=== PATIENT | female | born 1980 | race Caucasian/White ===

== ENCOUNTER 2020-02-25 17:13 | Emergency (ER) | payer OTHER, SELFPAY ==
[2020-02-25 17:30] VITALS: BP 139/89; PULSE 96; RESP 18; TEMP 36.9; O2SAT 100
--- NOTE | 2020-02-25 18:01 | ED.BACK ---
HPI - Back Pain/Injury General Chief Complaint: Back Pain/Injury Stated Complaint: Back Pain Time Seen by Provider: 02/25/20 17:44 Source: patient and RN notes reviewed Mode of arrival: ambulatory Limitations: no limitations History of Present Illness HPI Narrative: Patient presents today complaining of some acute on chronic low back pain. She has been experiencing chronic low back pain bilaterally for many years and has been seeing her doctor for it. She currently takes gabapentin, Flexeril, tramadol, diclofenac. Over the past 3 weeks, her pain is worsened and now radiates down the bilateral buttocks to the posterior knees. Denies any new injury or trauma. Denies numbness or tingling in the legs or genitals. Denies any loss of bowel or bladder control. She currently rates her pain 5/10 at rest, which increases to 9.5/10 with shooting pains. She has an appointment to see neurosurgery on March 15.States she was told by her employer that she needed to come get checked out due to her increased pain at work. MD elicited complaint: back pain Related Data Home Medications Medication Instructions Recorded Confirmed amlodipine 5 mg PO DAILY 02/25/20 02/25/20 cyclobenzaprine 10 mg PO TID PRN 02/25/20 02/25/20 diclofenac sodium 75 mg PO BID 02/25/20 02/25/20 escitalopram oxalate 20 mg PO DAILY 02/25/20 02/25/20 gabapentin See Rx Instructions .ROUTE .COMPLEX 02/25/20 02/25/20 norgestimate-ethinyl estradiol 1 tablet PO DAILY 02/25/20 02/25/20 [[id number]] tramadol 50 mg PO TID 02/25/20 02/25/20 Allergies Allergy/AdvReac Type Severity Reaction Status Date / Time No Known Allergies Allergy Unknown Verified 03/09/03 13:41 Review of Systems Review of Systems: Narrative: CONSTITUTIONAL: Denies body aches, fever, chills, or sweats. EYES: Denies visual changes, redness, or discharge. ENT: Denies rhinorrhea, congestion, sore throat, or otalgia. CARDIOVASCULAR: Denies chest pain, palpitations, or edema. RESPIRATORY: Denies cough or dyspnea. GASTROINTESTINAL: Denies abdominal pain, nausea, vomiting, or diarrhea. GENITOURINARY: Denies dysuria or hematuria. SKIN: Denies rash, itching, or wounds. MUSCULOSKELETAL: Denies joint pain, or myalgia. +Back pain NEUROLOGIC: Denies headache, numbness, tingling, or weakness. PSYCH: Denies depression or anxiety. [facility] Social History Social History Additional smoking assessment comments: smokes 4-5 cigarettes a day Substance use: never Comments At time of signature, I have reviewed and agree with nursing past medical, surgical, social and family history unless otherwise noted. Please see nursing chart for further information. There is no relevant family history pertinent to the presenting complaint Exam Narrative: Exam Narrative: GENERAL: Well-appearing, well-nourished, and in no acute distress. HEAD: Normocephalic, atraumatic. EYES: EOMI. No redness or drainage. Conjunctivae normal. ENT: Mucous membranes pink and moist. NECK: Normal AROM. CHEST: No respiratory distress. MUSCULOSKELETAL: Lumbar spinal tenderness. Bilateral lumbar paraspinal muscle tenderness. Bilateral SI joint tenderness.Distal sensation intact. Saddle sensation intact. Capillary refill normal. Pedal pulses normal. Foot push and pulls equal and strong. EXTREMITIES: Normal range of motion. No edema. SKIN: Warm, dry, no rash. Capillary refill normal. Normal skin turgor. NEURO: No focal deficits. Alert and oriented x3. Gait steady. PSYCH: Normal affect. No signs of depression or anxiety. Course Vital Signs Vital signs: Vital Signs Temperature 98.5 F 02/25/20 17:30 Pulse Rate 96 02/25/20 17:30 Respiratory Rate 18 02/25/20 17:30 Blood Pressure 139/89 02/25/20 17:30 Pulse Oximetry 100 02/25/20 17:30 Temperature 98.5 F 02/25/20 17:30 Pulse Rate 96 02/25/20 17:30 Respiratory Rate 18 02/25/20 17:30 Blood Pressur
== END 2020-02-25 18:05 | disposition home or self-care (01) ==
PROVIDERS: Emergency Provider Nurse Practitioner; PCP Physician Assistant
DX: M54.5 Low back pain (principal); G89.29 Other chronic pain; M54.31 Sciatica, right side; F17.210 Nicotine dependence, cigarettes, uncomplicated; I10 Essential (primary) hypertension; F41.9 Anxiety disorder, unspecified; F32.9 Major depressive disorder, single episode, unspecified; Z90.5 Acquired absence of kidney
CPT/HCPCS: 99213; G0463

== ENCOUNTER 2020-08-07 13:12 | Outpatient (CLI) | payer OTHER, SELFPAY ==
[2020-08-07 14:08] LABS: SARS-CoV-2 Ag Negative (Negative)
== END 2020-08-07 13:13 | disposition home or self-care (01) ==
LOC: CHSLAB 13:14
PROVIDERS: PCP Physician Assistant; Visit Provider Physician Assistant
DX: Z20.822 Contact with and (suspected) exposure to COVID-19 (principal)
CPT/HCPCS: 87426; C9803

== ENCOUNTER 2020-08-11 11:56 | Emergency (ER) | payer SELFPAY ==
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
[2020-08-11 11:56] VITALS: BP 137/111; PULSE 104; RESP 20; TEMP 36.6; O2SAT 100
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
[2020-08-11 12:53] LABS: Basophils Absolute Auto 0.06 K/mm3 (0.00-0.10); Basophils Percent Auto 0.7 % (0.0-1.0); Eosinophils Absolute Auto 0.09 K/mm3 (0.02-0.50); Eosinophils Percent Auto 1.1 % (1.0-6.0); Hematocrit 37.8 % (35.0-49.0); Hemoglobin 12.8 g/dL (12.0-15.0); Immature Granulocyte Absolute 0.03 K/mm3 (0.00-0.00); Immature Granulocyte Percent A 0.4 % (0.0-0.0); Lymphocytes Absolute Auto 1.98 K/mm3 (1.10-4.50); Lymphocytes Percent Auto 24.2 % (18.0-42.0); Mean Corpuscular HGB Conc 33.9 g/dL (32.0-36.0); Mean Corpuscular Hemoglobin 29.1 pg (27.0-31.0); Mean Corpuscular Volume 85.9 fL (78.0-102.0); Mean Platelet Volume 10.1 fl (9.2-11.8); Monocytes Absolute Auto 0.45 K/mm3 (0.10-0.90); Monocytes Percent Auto 5.5 % (2.0-11.0); Neutrophils Absolute Auto 5.6 K/mm3 (1.7-7.2); Neutrophils Percent Auto 68.1 % (50.0-70.0); Platelet Count Result 229 K/mm3 (150-420); Red Cell Distribution Width 13.1 % (11.6-14.4); White Blood Count 8.2 K/mm3 (4.8-10.8)
[2020-08-11] MEDS: KETOROLAC 30 MG/ML VIAL (*BKC) IV PUSH (13:00)
[2020-08-11 13:07] LABS: Alanine Aminotransferase 34 U/L (14-59); Albumin Level 3.2 g/dL (3.4-5.0); Alkaline Phosphatase 67 U/L (46-116); Anion Gap 10 mmol/L (8-16); Aspartate Amino Transferase 19 U/L (15-37); Bilirubin,Total 0.4 mg/dL (0.00-1.00); Blood Urea Nitrogen 10 mg/dL (7-18); Calcium 8.8 mg/dL (8.5-10.1); Carbon Dioxide 24 mmol/L (21-32); Chloride 104 mmol/L (98-108); Estimated Glomerular Filt Rate 59; Glucose 92 mg/dL (70-99); Osmolality Calculated 285 mOsm/kg (285-295); Potassium 3.7 mmol/L (3.5-5.1); Sodium 138 mmol/L (136-145); Total Protein 7.1 g/dL (6.4-8.2)
[2020-08-11] MEDS: DEXAMETHASONE 4 MG TABLET 12 MG PO (13:41)
[2020-08-11] MEDS: BACLOFEN 10 MG TABLET 20 MG PO (13:41)
[2020-08-11 13:47] LABS: Add Urine Microscopic? YES; Appearance Urine Sl Cloudy (Clear); Bilirubin Urine Negative (Negative); Blood Urine 3+ (Negative); Color Urine Yellow (Yellow); Glucose Urine UA Negative (Negative); Ketones Urine Negative (Negative); Leukocyte Esterase Ur Negative (Negative); Nitrate Urine Negative (Negative); Protein Urine 1+ (Negative); Specific Grav Ur 1.025 (1.010-1.020)
[2020-08-11 13:55] LABS: RBC Urine >75 /hpf (0-2)
[2020-08-11 13:56] LABS: Bacteria Urine 3+ /hpf; Calcium Oxalate Crystals Urine Present /hpf; Squamous Epithelial Cell Urine Few /hpf (Few); WBC Urine 0-3 /hpf (0-3)
[2020-08-11 14:15] VITALS: BP 136/99; PULSE 100; RESP 15; O2SAT 100
== END 2020-08-11 14:19 | disposition home or self-care (01) ==
PROVIDERS: Emergency Provider Emergency Medicine; PCP Physician Assistant
DX: M54.2 Cervicalgia (principal); V89.2XXA Person injured in unspecified motor-vehicle accident, traffic, initial encounter
CPT/HCPCS: 36415; 70450; 71101; 72125; 72131; 73080; 80053; 81001; 85025; 96374; 99283; 99284; A9270; J1885; J8540

== ENCOUNTER 2021-01-31 09:41 | Outpatient (CLI) | payer OTHER, SELFPAY ==
[2021-01-31 13:08] LABS: SARS-CoV-2 RNA PCR Negative (Negative)
== END 2021-01-31 09:42 | disposition home or self-care (01) ==
LOC: CHSLAB 09:44
PROVIDERS: PCP Physician Assistant; Visit Provider Physician Assistant
DX: B34.9 Viral infection, unspecified (principal); Z20.822 Contact with and (suspected) exposure to COVID-19
CPT/HCPCS: C9803; U0003; U0005

== ENCOUNTER 2021-05-08 12:50 | Emergency (ER) | payer OTHER, SELFPAY ==
--- NOTE | ~2021-05-08 | XR_ITS ---
EXAMINATION: XR abdomen/kub 1V EXAM DATE: 05/08/2021 16:52 INDICATION: kidney stone/ low back pain x today with nausea kidney stone, low back pain. Nausea. TECHNIQUE: Frontal projection(s) of the abdomen for interpretation. Correlation is made to lumbar CT same date. FINDINGS: Probable identification of the sizable right mid ureteral stone in the right mid calyceal stone. These findings have been indicated. Nonobstructive bowel gas pattern. There is mild lumbar lev oscoliosis. Gadolinium IMPRESSION: 1. Probable identification right nephrolithiasis and mid ureteral stone. Reviewed, dictated and finalized at location A. AL PATIENT COORDINATOR
--- NOTE | ~2021-05-08 | CT_ITS ---
EXAMINATION: CT lumbar spine wo maría EXAM DATE: 05/08/2021 15:23 INDICATION: low back pain pain @ RT side low back x today w/ nausea. no injury TECHNIQUE: Spiral CT of the lumbar spine was performed without contrast. Axial, coronal and sagittal images lumbar spine were reviewed. The dose-length product (DLP) for this examination was 1436.52 m Gy-cm. The exposure was tailored according to patient size (auto mA exposure control), and iterativ e reconstruction (ASIR) was used as additional dose reduction technique. Comparison is made to prior examination from 08/11/2020. FINDINGS: There is a right mid ureteral stone measuring 5 x 10 mm at the S2 level. consultants reddy mock appreciate baseline KUB for follow-up. There is moderate right-sided perinephric fat stranding, hy droureteronephrosis. Additional 10 mm right mid calyceal stone. Left kidney not identified. Some scat tered sigmoid diverticula noted. There are no acute fractures identified. No spondylolysis. Mild mid lumbar levoscoliosis. There is se kayla disc disease at L3-4, moderate to severe at L4-5. Level by level evaluation: T12-L1: Disc does not extend beyond the endplate margin. Facet arthropathy: None. Neural foraminal stenosis: No stenosis. Central canal stenosis: No stenosis. L1-L2: There is a minimal diffuse disc bulge. Facet arthropathy: Minimal. Neural foraminal stenosis: No stenosis. Central canal stenosis: No stenosis. L2-L3: There is a mild diffuse disc bulge. Facet arthropathy: Mild. Neural foraminal stenosis: No stenosis. Central canal stenosis: No stenosis. L3-L4: There is a moderate diffuse disc bulge. Facet arthropathy: Moderate right, mild to moderate left. Neural foraminal stenosis: Moderate to severe right, mild to moderate left. Central canal stenosis: Mild to moderate. L4-L5: There is large calcified central disc extrusion causing severe central canal stenosis Facet arthropathy: Moderate bilateral. Neural foraminal stenosis: Moderate to severe left, moderate right. Central canal stenosis: Severe. L5-S1: There is a mild diffuse disc bulge. Facet arthropathy: Moderate to severe left, moderate right. Neural foraminal stenosis: Moderate right, mild to moderate left. Central canal stenosis: Mild. IMPRESSION: 1. Right mid ureteral 5 x 10 mm stone, moderate obstructive nephropathy. consultants would apprec iate baseline KUB. 2. Large right nephrolithiasis. 3. L4-5 severe central canal stenosis and moderate to severe left neural foraminal stenosis. 4. L3-4 moderate to severe disc disease and right neural foraminal stenosis. Reviewed, dictated and finalized at location A. TRIC MOTOR FITTER IMPRESSION: 1. Right mid ureteral 5 x 10 mm stone, moderate obstructive nephropathy. co nsultants would appreciate baseline KUB. 2. Large right nephrolithiasis. 3. L4-5 severe central canal stenosis and moderate to severe left neural chantelle inal stenosis. 4. L3-4 moderate to severe disc disease and right neural foraminal stenosis.
[2021-05-08 12:58] VITALS: BP 112/76; PULSE 90; RESP 20; TEMP 37.2; O2SAT 96
--- NOTE | 2021-05-08 13:06 | ED.BACK ---
HPI - Back Pain/Injury General Chief Complaint: Back Pain/Injury Stated Complaint: AMBULANCE Time Seen by Provider: 05/08/21 13:06 Source: patient and EMS History of Present Illness HPI Narrative: 40-year-old female with chronic low back pain, status post nephrectomy, anxiety/ depression was brought in to the ER by for acute on chronic low back pain. No recent trauma. The pain does not radiate to the legs stays localized to the lower back. No bladder or bowel involvement. No paresthesias or motor loss in the lower extremities. MD elicited complaint: back pain Pertinent past history: prior back pain Onset (ago): hour(s) ( Started 6 hours ago) Timing: constant Severity: severe Pain scale (0-10): 10 Radiation: none Exacerbating factors: none Relieving factors: none Associated symptoms: denies other symptoms Work related injury: No Related Data Home Medications Medication Instructions Recorded Confirmed amlodipine 5 mg PO DAILY 02/25/20 05/08/21 cyclobenzaprine 10 mg PO TID PRN 02/25/20 05/08/21 diclofenac sodium 75 mg PO BID 02/25/20 05/08/21 escitalopram oxalate 20 mg PO DAILY 02/25/20 05/08/21 gabapentin See Rx Instructions .ROUTE .COMPLEX 02/25/20 05/08/21 norgestimate-ethinyl estradiol 1 tablet PO DAILY 02/25/20 05/08/21 [[id number]] Allergies Allergy/AdvReac Type Severity Reaction Status Date / Time No Known Allergies Allergy Unknown Verified 05/08/21 13:07 Review of Systems Review of Systems: All systems reviewed & are unremarkable except as noted in HPI and below Constitutional: Constitutional: Reports as per HPI and Reports no additional constitutional complaints Eyes: Eyes: Reports as per HPI and Reports no additional eye complaints ENT: Reports system reviewed and no additional complaints, except as documented Cardiovascular: Cardiovascular: Reports as per HPI and Reports no additional cardiovascular complaints Respiratory: Respiratory: Reports as per HPI and Reports no additional respiratory complaints Gastrointestinal: Gastrointestinal: Reports as per HPI and Reports no additional gastrointestinal complaints Genitourinary: Genitourinary: Reports no additional female genitourinary complaints Musculoskeletal: Musculoskeletal: Reports no additional musculoskeletal complaints Integumentary/Breasts: Skin/Breast: Reports system reviewed and no additional complaints, except as docu Neurologic: Reports system reviewed and no additional complaints, except as documented Psychiatric: Psychiatric: Reports no additional psychiatric complaints Endocrine: Endocrine: Reports no additional endocrine complaints Hematologic/Lymphatic: Hematologic/Lymphatic: Reports no additional hematologic/lymphatic complaints Allergic/Immunologic: Allergic/Immunologic: Reports no additional allergic/immunologic complaints PMFSH Past Medical History Medical History (Updated 05/08/21 @ 19:22 by Alex Amaya MD) Anxiety Chronic back pain Depression Hypertension Surgical History Surgical History History of nephrectomy Family History Family History Mother No problems noted. Father No problems noted. Social History Social History Additional smoking assessment comments: smokes 4-5 cigarettes a day Alcohol use details: does not drink alcohol Substance use: never Exam Narrative: patient is tossing and turning in the bed complaining of low back pain. She she is able to move from onr side to the other side and then bend forwards without any difficulty. She is moaning with pain. Const: General: cooperative, healthy appearing and acute distress Nutritional Appearance: average body habitus and well nourished HENMT: Head: normal to inspection and No palpable skull fracture present Ears: hearing grossly normal
[2021-05-08] MEDS: HYDROmorphone HCL INJ (*CRX) 2 MG/ML VIAL 1 MG IM (13:32)
[2021-05-08] MEDS: ONDANSETRON HCL ODT 4 MG TABLET PO (13:33)
[2021-05-08 14:10] LABS: Add Urine Microscopic? YES; Appearance Urine Cloudy (Clear); Bilirubin Urine Negative (Negative); Blood Urine 3+ (Negative); Color Urine Yellow (Yellow); Glucose Urine UA Negative (Negative); Ketones Urine Negative (Negative); Leukocyte Esterase Ur 3+ (Negative); Nitrate Urine Positive (Negative); Protein Urine 3+ (Negative); Urobilinogen Urine 0.2 mg/dL (0.2-1.0)
[2021-05-08 14:13] LABS: Pregnancy On Board Control Positive; Urine Pregnancy Test Negative
[2021-05-08 14:16] LABS: Bacteria Urine 4+ /hpf; Squamous Epithelial Cell Urine Moderate /hpf (Few); WBC Urine 51-75 /hpf (0-3)
[2021-05-08] MEDS: KETOROLAC 30 MG/ML VIAL (*BKC) IM (14:52)
[2021-05-08 16:11] LABS: Basophils Absolute Auto 0.04 K/mm3 (0.00-0.10); Basophils Percent Auto 0.3 % (0.0-1.0); Eosinophils Absolute Auto 0.01 K/mm3 (0.02-0.50); Eosinophils Percent Auto 0.1 % (1.0-6.0); Hematocrit 35.6 % (35.0-49.0); Hemoglobin 11.7 g/dL (12.0-15.0); Immature Granulocyte Absolute 0.05 K/mm3 (0.00-0.00); Immature Granulocyte Percent A 0.3 % (0.0-0.0); Lymphocytes Absolute Auto 0.38 K/mm3 (1.10-4.50); Lymphocytes Percent Auto 2.6 % (18.0-42.0); Mean Corpuscular HGB Conc 32.9 g/dL (32.0-36.0); Mean Corpuscular Hemoglobin 28.6 pg (27.0-31.0); Mean Platelet Volume 9.5 fl (9.2-11.8); Monocytes Absolute Auto 0.09 K/mm3 (0.10-0.90); Monocytes Percent Auto 0.6 % (2.0-11.0); Neutrophils Absolute Auto 13.9 K/mm3 (1.7-7.2); Neutrophils Percent Auto 96.1 % (50.0-70.0); Platelet Count Result 227 K/mm3 (150-420); Red Blood Count 4.09 M/mm3 (4.20-5.40); Red Cell Distribution Width 13.1 % (11.6-14.4); White Blood Count 14.5 K/mm3 (4.8-10.8)
[2021-05-08 16:29] LABS: Alanine Aminotransferase 24 U/L (14-59); Albumin Level 2.9 g/dL (3.4-5.0); Alkaline Phosphatase 79 U/L (46-116); Anion Gap 12 mmol/L (8-16); Aspartate Amino Transferase 17 U/L (15-37); Bilirubin,Total 0.8 mg/dL (0.00-1.00); Blood Urea Nitrogen 20 mg/dL (7-18); Calcium 8.3 mg/dL (8.5-10.1); Carbon Dioxide 25 mmol/L (21-32); Chloride 103 mmol/L (98-108); Estimated CRCL calculation 52 ml/min; Estimated Glomerular Filt Rate 42; Glucose 136 mg/dL (70-99); Osmolality Calculated 294 mOsm/kg (285-295); Potassium 4.5 mmol/L (3.5-5.1); Sodium 140 mmol/L (136-145); Total Protein 6.8 g/dL (6.4-8.2)
[2021-05-08 16:32] LABS: Lactic Acid Reflex 0.9 mmol/L (0.4-2.0)
[2021-05-08 17:00] VITALS: BP 120/66; PULSE 79; RESP 20; TEMP 37.2; O2SAT 98
[2021-05-08] MEDS: LACTATED RINGERS 1,000 ML 999 ML IV CONT (17:00)
[2021-05-08] MEDS: levoFLOXacin 500 MG/D5W 100 ML 500 MG/100 ML BAG 100 MG IVPB (17:00)
[2021-05-08 17:50] LABS: SARS-CoV-2 RNA PCR Negative (Negative)
[2021-05-08 18:00] VITALS: BP 118/70; PULSE 72; RESP 16; O2SAT 96
[2021-05-08] MEDS: HYDROmorphone HCL INJ (*CRX) 2 MG/ML VIAL 0.5 MG IV PUSH ×2 (18:00→21:14)
[2021-05-08] MEDS: SODIUM CHLORIDE 0.9% IV 1,000 ML 999 ML IV CONT (18:05)
--- NOTE | 2021-05-08 18:59 | PC.NURSE ---
mom at desk screaming, she only has one kidney she needs transferred now. explained we have an accepting MD waiting for a room to get clean
--- NOTE | 2021-05-08 19:23 | PC.NURSE ---
Took Pt report for Chandrika KINGSTON at this time. Pt. resting on stretcher reports feeling cold only. Warm blankets provided.
--- NOTE | 2021-05-08 20:24 | PC.NURSE ---
RN called [facility] to confirm a room for pt. [facility] staff on phone stated pt will be in room [id number] and gave [phone] as a contact number for the floor.
--- NOTE | 2021-05-08 21:09 | PC.NURSE ---
PT report caled to Ange KINGSTON at 2020. [facility] caled and here at this time to transport Pt. Pt reporting pain a 10 out of 10 at this time orders received for Dilaudid.
[2021-05-08 21:17] VITALS: BP 134/78; PULSE 120; RESP 22; TEMP 37; O2SAT 98
--- NOTE | 2021-05-10 15:26 | PC.NURSE ---
call to [facility], spoke with zac, regarding blood culture prelim results. zac states she has received results previously
== END 2021-05-08 21:20 | disposition short-term general hospital (02) ==
PROVIDERS: Emergency Provider Internal Medicine Critical Care Medicine; PCP Physician Assistant
DX: N20.1 Calculus of ureter (principal); N13.30 Unspecified hydronephrosis; N12 Tubulo-interstitial nephritis, not specified as acute or chronic; Z20.822 Contact with and (suspected) exposure to COVID-19
CPT/HCPCS: 36415; 72131; 74018; 80053; 81001; 81025; 83605; 85025; 87040; 87147; 87186; 96361; 96365; 96372; 96375; 96376; 99284; 99285; A9270; C9803; J1170; J1885; J1956; J7030; J7120; U0003; U0005

== ENCOUNTER 2021-09-25 13:09 | Outpatient (CLI) | payer OTHER, SELFPAY ==
[2021-09-25 16:36] LABS: SARS-CoV-2 RNA PCR Negative (Negative)
== END 2021-09-25 13:10 | disposition home or self-care (01) ==
PROVIDERS: PCP Physician Assistant
DX: Z01.818 Encounter for other preprocedural examination (principal); Z20.822 Contact with and (suspected) exposure to COVID-19
CPT/HCPCS: C9803; U0003; U0005

== ENCOUNTER 2021-10-15 10:54 | Outpatient (RCR) | payer OTHER, SELFPAY ==
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
--- NOTE | 2022-03-18 12:40 | PCPTNOTE ---
Ms. Grubbs attended a total of 4 treatment sessions. She has failed to return to the clinic and will be discharged from our care. Refer to last daily note for pt. discharge status.
== END 2021-10-30 23:59 | disposition home or self-care (01) ==
LOC: CHSPT 10:54
DX: S82.041D Displaced comminuted fracture of right patella, subsequent encounter for closed fracture with routine healing (principal); Z09 Encounter for follow-up examination after completed treatment for conditions other than malignant neoplasm
CPT/HCPCS: 97014; 97110; 97161; G0283

== ENCOUNTER 2022-01-22 13:10 | Emergency (ER) | payer OTHER, SELFPAY ==
--- NOTE | ~2022-01-22 | CT_ITS ---
EXAMINATION: CT brain wo con DATE: 01/22/2022 14:23 INDICATION: head injury with LOC,YESTERDAY,GENERAL PAIN,DIZZY,NAUSEA . TECHNIQUE: Computed tomography (CT) of the head was performed without intravenous contrast. The mA wa s adjusted according to patient size. Iterative reconstruction technique was employed. The dose-lengt h product was 605.33 mGy-cm. COMPARISON: 08/11/2020 FINDINGS: No acute intracranial hemorrhage or extra-axial fluid collection. No hydrocephalus, mass, or herniation. No acute ischemic infarct. Unremarkable dural venous sinus attenuation. No acute osseous abnormality. The aerated spaces are clear. IMPRESSION: No acute intracranial process. Reviewed, dictated and finalized at location K.
--- NOTE | ~2022-01-22 | CT_ITS ---
EXAMINATION: CT lumbar spine wo con DATE: 01/22/2022 14:24 INDICATION: Low back pain. Fall. TECHNIQUE: Computed tomography (CT) of the lumbar spine was performed without intravenous contrast. A utomated exposure control and iterative reconstruction technique were employed. The dose-length produ ct was 1217.57 mGy-cm. COMPARISON: CT lumbar spine 05/08/2021 FINDINGS: The left kidney is absent. There is 12 degrees levoscoliosis of lumbar spine. Vertebral bod y heights are normal. There is severely decreased disc height at L3-L4 and L4-L5 with endplate remode ling. The following disc levels are specifically discussed: L1-L2: The disc does not extend beyond the endplate margin. There is mild bilateral facet joint osteo arthritis. There is no neural foraminal stenosis. There is no central canal stenosis. L2-L3: The disc is bulging. There is mild bilateral facet joint osteoarthritis. There is mild left ne ural foraminal stenosis. There is mild central canal stenosis. L3-L4: The disc is bulging. There is severe right and moderate left facet joint osteoarthritis. There is moderate right and mild left neural foraminal stenosis. There is mild central canal stenosis. L4-L5: The disc is bulging. There is moderate right and severe left facet joint osteoarthritis. There is mild right and moderate left neural foraminal stenosis. There is mild central canal stenosis. L5-S1: The disc does not extend beyond the endplate margin. There is moderate right and severe left f acet joint osteoarthritis. There is mild left neural foraminal stenosis. There is no central canal st enosis. IMPRESSION: 1. Severe lumbar spondylosis with interval improvement in central canal stenosis at L4-L5. 2. Lumbar levoscoliosis. Reviewed, dictated and finalized at location A. IMPRESSION: 1. Severe lumbar spondylosis with interval improvement in central canal stenosi s at L4-L5. 2. Lumbar levoscoliosis.
--- NOTE | ~2022-01-22 | CT_ITS ---
EXAMINATION: CT cervical spine wo con DATE: 01/22/2022 14:23 INDICATION: fall,HI YESTERDAY,DIZZY,GENERAL PAIN TECHNIQUE: Computed tomography (CT) of the cervical spine was performed without intravenous contrast. Automated exposure control and iterative reconstruction technique were employed. The dose-length pro duct was 363.31 mGy-cm. COMPARISON: 08/11/2020. FINDINGS: Vertebral Body Alignment: 2 mm anterolisthesis of C3 on C4. 2 mm retrolisthesis of C4 on C5. Both lik gian on a degenerative basis. Craniocervical and atlantoaxial alignment: Moderate degenerative change. Alignment intact. Osseous structures/fracture: No evidence of a lytic or blastic process in the visualized spine. No e vidence of acute fracture. Old left T1 transverse process fracture. Cervical soft tissues: The paraspinal soft tissues planes are maintained. Degenerative changes: Degenerative changes, without severe neural foraminal or central canal narrowin g. IMPRESSION: No acute fracture or traumatic malalignment in the cervical spine. Reviewed, dictated and finalized at location K.
[2022-01-22 13:15] VITALS: BP 154/85; PULSE 90; RESP 18; TEMP 36.3; O2SAT 100
--- NOTE | 2022-01-22 13:32 | ED.FALL ---
HPI - Fall General Chief Complaint: Fall Stated Complaint: FALL, HEADACHE Time Seen by Provider: 01/22/22 13:31 Source: patient Mode of arrival: ambulatory History of Present Illness HPI Narrative: 41-year-old female with a history of hypertension, anxiety/ depression, chronic low back pain, migraine, status post nephrectomy presents to the ER -- had a fall yesterday when she fell backwards and hit the back of her head. she lost consciousness after the fall -- Severe headache which is generalized. No nausea/ vomiting. No photophobia / phonophobia. No focal neuro deficits. -- worsening of her chronic low back pain -- dizziness First noted today on standing up. -- bilateral shoulder pain worse on movement MD complaint: fall Onset (ago): day(s) ( fell yesterday) Fall from: standing ( Fell in her bathtub) Fall witnessed: no Place fall occurred: home Loss of consciousness: yes Prolonged down time: unclear Symptoms prior to fall: none Context: tripped/slipped Location of injury: head Severity: severe Quality: aching Associated symptoms (after fall): headache, neck pain, weakness and lightheaded Related Data Home Medications Medication Instructions Recorded Confirmed amlodipine 5 mg tablet 5 mg PO DAILY 02/25/20 01/22/22 cyclobenzaprine 10 mg tablet 10 mg PO TID PRN Back Pain 02/25/20 01/22/22 diclofenac sodium 75 mg 75 mg PO BID 02/25/20 01/22/22 tablet,delayed release escitalopram oxalate 20 mg tablet 20 mg PO DAILY 02/25/20 01/22/22 gabapentin 600 mg tablet See Rx Instructions .Route .COMPLEX 02/25/20 01/22/22 norgestimate 0.18 mg/0.215 mg/0.25 1 tablet PO DAILY 02/25/20 01/22/22 mg-ethinyl estradiol 25 mcg tablet ([id number]) Allergies Allergy/AdvReac Type Severity Reaction Status Date / Time No Known Allergies Allergy Unknown Verified 01/22/22 13:28 Review of Systems Review of Systems: All systems reviewed & are unremarkable except as noted in HPI and below Constitutional: Constitutional: Reports as per HPI and Reports no additional constitutional complaints Eyes: Eyes: Reports as per HPI and Reports no additional eye complaints ENT: Reports system reviewed and no additional complaints, except as documented and Reports as per HPI Cardiovascular: Cardiovascular: Reports as per HPI and Reports no additional cardiovascular complaints Respiratory: Respiratory: Reports as per HPI and Reports no additional respiratory complaints Gastrointestinal: Gastrointestinal: Reports as per HPI and Reports no additional gastrointestinal complaints Genitourinary: Genitourinary: Reports no additional female genitourinary complaints and Reports as per HPI Musculoskeletal: Musculoskeletal: Reports no additional musculoskeletal complaints, Reports as per HPI and Reports back pain Integumentary/Breasts: Skin/Breast: Reports system reviewed and no additional complaints, except as docu and Reports as per HPI Comments: no bruises/contusions noted. Neurologic: Reports system reviewed and no additional complaints, except as documented and Reports as per HPI Psychiatric: Psychiatric: Reports no additional psychiatric complaints and Reports as per HPI Endocrine: Endocrine: Reports no additional endocrine complaints and Reports as per HPI Hematologic/Lymphatic: Hematologic/Lymphatic: Reports no additional hematologic/lymphatic complaints and Reports as per HPI Allergic/Immunologic: Allergic/Immunologic: Reports no additional allergic/immunologic complaints and Reports as per HPI PMFSH Past Medical History Medical History (Updated 01/22/22 @ 14:50 by Alex Amaya MD) Anxiety Chronic back pain Depression Hypertension Surgical History Surgical History History of nephrectomy Family History Family History Mother No problems noted. Father No problems noted. Social History
--- NOTE | 2022-01-22 13:39 | PC.NURSE ---
PT WAS TALKING WITH SON IN WAITING AREA WITHOUT DISTRESS, WAS ABLE TO PULL HAIR UP INTO PONYTAIL WITHOUT DIFFICULTY, TRANSFER FROM WC TO STRETCHER ON HER OWN. HOWEVER, WHEN RN APPROACHED PT SHE BEGINS TO CRY AND TRASH ABOUT ONCE ON THE STRETCHER.
[2022-01-22 13:55] LABS: Pregnancy On Board Control Positive; Urine Pregnancy Test Negative
[2022-01-22] MEDS: KETOROLAC 30 MG/ML VIAL (*BKC) IM (13:58)
--- NOTE | 2022-01-22 14:04 | PC.NURSE ---
1355 PT AMBULATES TO WITH SLOW STEADY GAIT. PT IS MOANING AND ROLLING AROUND ON STRETCHER UPON RETURN. PT WAS ABLE TO PROVIDE URINE SPECIMEN. WILL CONTINUE TO MONITOR.
[2022-01-22 14:06] LABS: Add Urine Microscopic? YES; Appearance Urine Clear (Clear); Bilirubin Urine Negative (Negative); Blood Urine Negative (Negative); Color Urine Light Yellow (Yellow); Glucose Urine UA Negative (Negative); Ketones Urine Trace (Negative); Leukocyte Esterase Ur Negative (Negative); Nitrate Urine Negative (Negative); Protein Urine 1+ (Negative); Urobilinogen Urine 0.2 mg/dL (0.2-1.0); pH Urine 7.5 (5.0-8.0)
[2022-01-22 14:10] LABS: Bacteria Urine Trace /hpf; RBC Urine None seen /hpf (0-2); Squamous Epithelial Cell Urine Few /hpf (Few); WBC Urine None seen /hpf (0-3)
[2022-01-22 14:17] LABS: Basophils Absolute Auto 0.02 K/mm3 (0.00-0.10); Basophils Percent Auto 0.5 % (0.0-1.0); Eosinophils Absolute Auto 0.04 K/mm3 (0.02-0.50); Hematocrit 32.3 % (35.0-49.0); Hemoglobin 10.5 g/dL (12.0-15.0); Immature Granulocyte Absolute 0.01 K/mm3 (0.00-0.00); Immature Granulocyte Percent A 0.3 % (0.0-0.0); Lymphocytes Absolute Auto 0.23 K/mm3 (1.10-4.50); Lymphocytes Percent Auto 5.8 % (18.0-42.0); Mean Corpuscular HGB Conc 32.5 g/dL (32.0-36.0); Mean Corpuscular Hemoglobin 26.6 pg (27.0-31.0); Mean Corpuscular Volume 81.8 fL (78.0-102.0); Mean Platelet Volume 9.8 fl (9.2-11.8); Monocytes Absolute Auto 0.55 K/mm3 (0.10-0.90); Monocytes Percent Auto 13.9 % (2.0-11.0); Neutrophils Absolute Auto 3.1 K/mm3 (1.7-7.2); Neutrophils Percent Auto 78.5 % (50.0-70.0); Platelet Count Result 191 K/mm3 (150-420); Red Blood Count 3.95 M/mm3 (4.20-5.40); Red Cell Distribution Width 14.6 % (11.6-14.4)
[2022-01-22 14:31] LABS: Alanine Aminotransferase 28 U/L (14-59); Albumin Level 3.3 g/dL (3.4-5.0); Alkaline Phosphatase 81 U/L (46-116); Anion Gap 10 mmol/L (8-16); Aspartate Amino Transferase 24 U/L (15-37); Bilirubin,Total 0.4 mg/dL (0.00-1.00); Blood Urea Nitrogen 11 mg/dL (7-18); Calcium 8.8 mg/dL (8.5-10.1); Carbon Dioxide 24 mmol/L (21-32); Chloride 101 mmol/L (98-108); Estimated CRCL calculation 61 ml/min; Estimated Glomerular Filt Rate 50; Glucose 106 mg/dL (70-99); Osmolality Calculated 279 mOsm/kg (285-295); Potassium 3.3 mmol/L (3.5-5.1); Sodium 135 mmol/L (136-145); Total Protein 7.4 g/dL (6.4-8.2); Troponin I 9.9 ng/L (0.00-60.4)
--- NOTE | 2022-01-22 14:51 | PC.NURSE ---
PT IS RESTING ON STRETCHER WITHOUT DISTRESS AT THIS TIME.
[2022-01-22 15:00] VITALS: BP 142/93; PULSE 90; RESP 14; O2SAT 99
== END 2022-01-22 15:00 | disposition home or self-care (01) ==
PROVIDERS: Emergency Provider Internal Medicine Critical Care Medicine; PCP Physician Assistant
DX: S06.0X9A Concussion with loss of consciousness of unspecified duration, initial encounter (principal); W19.XXXA Unspecified fall, initial encounter; M47.816 Spondylosis without myelopathy or radiculopathy, lumbar region; M54.2 Cervicalgia; R51.9 Headache, unspecified
CPT/HCPCS: 36415; 70450; 72125; 72131; 80053; 81001; 81025; 84484; 85025; 96372; 99284; J1885

== ENCOUNTER 2023-08-04 12:31 | Outpatient (CLI) | payer OTHER, SELFPAY ==
--- NOTE | ~2023-08-04 | XR_ITS ---
EXAMINATION: XR knee RT 3V DATE: 08/04/2023 12:55 INDICATION: Right knee pain and swelling TECHNIQUE: Three views of the right knee were obtained. COMPARISON: None. FINDINGS: There are changes of prior open reduction and internal fixation of the patella. Alignment i s normal. No acute fracture or osteochondral lesion. There is mild tricompartmental osteoarthritis ch aracterized by tiny marginal osteophytes. A small joint effusion is noted. There is infrapatellar sof t tissue swelling of the knee. IMPRESSION: 1. Right knee soft tissue swelling without acute osseous abnormality. Reviewed, dictated and finalized at location B. 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
== END 2023-08-04 12:32 | disposition home or self-care (01) ==
LOC: CHSIMG 12:32
PROVIDERS: PCP Physician Assistant; Visit Provider Physician Assistant
DX: M25.561 Pain in right knee (principal); M79.89 Other specified soft tissue disorders
CPT/HCPCS: 73562

== ENCOUNTER 2023-08-11 14:11 | Outpatient (RCR) | payer OTHER, SELFPAY ==
--- NOTE | 2023-08-11 13:35 | PTOPEVAL1 ---
Assessment and note entered by Damion Polanco Evaluation Information Assessment Status Evaluation Diagnosis right knee pain Onset 07/11/23 Subjective Information Pt. reports that she was in an accident 2 years ago resulting in patellar fx. She reports on she was at work and doing some cleaning. She describes turning on the right knee and heard a pop. She has underwent xray. The xray revealed some swelling. She reports she has not undergone MRI. She describes pain on the inside of the right knee. She reports that the pain is constant and stabbing. She reports she has been using a cane, but did not bring the cane today. She does wear a knee brace, and has utilized a brace since her accident 2 years ago. She reports that pain is worsened with standing, walking and stairs. She states that the pain in the right knee will wake her at night. She states that she is currently off work due to her injury. 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 She reports that her goal is to decrease her knee pain with standing and walking. Reported Pain Level Pain Score 7: Self Report Assessment PT Clinical Summary Pt. is a 42 year old female who enters the clinic post right knee injury. Special testing is difficult due to pain noted in all planes of movement. She currently presents with impaired gait, functional decline, impaired right knee ROM and right l.e. weakness. Continued skilled PT is indicated in order to improve these areas to allow for improved comfort and return to normal IADL's. Plan of Care Interventions Electrical Stimulation,Hot Pack/Cold Pack,Manual Therapy,Neuro Re-education,Patient/Caregiver Educati,Therapeutic Activities,Therapeutic Exercise PT Services Indicated Yes Treatment Frequency and 2x/week x 10 visits Duration These treatments will address the objective and functional deficits as defined above. The patient will be advanced safely and appropriately in order for the patient to progress towards his/her prior level of function. Additional exercises will be introduced and as well as a comprehensive home exercise program upon discharge, if needed, ?to ensure carryover of functional gains achieved in the clinic. This treatment plan has been reviewed and agreement upon by the patient.
--- NOTE | 2023-08-11 13:35 | OPREHPOC ---
Outpatient Therapy Plan of Care This is a Multidisciplinary Plan of Care that may contain components documented by all disciplines (PT, OT, and ST.) PT Problem 1 PT Problem #1 Knowledge Deficit PT Goal 1 Goal Pt. will be independent with a HEP addressing ROM protestant and l.e. strength. Target Visit 2 PT Problem 2 PT Problem #2 Edema PT Goal 1 Goal Pt. will decrease right knee girth measurements at the joint line to 39cm or less Target Visit 5 PT Problem 3 PT Problem #3 Impaired Range of Motion PT Goal 1 Goal Pt. will achieve 0-125 degrees right knee active ROM to allow for completion of functional squatting activities. Target Visit 10 PT Problem 4 PT Problem #4 Impaired Gait PT Goal 1 Goal -Pt. will ambulate over level surface with equal right and left stance time. -Pt. ascend and descend stairs with reciprocal pattern. PT Problem 5 PT Problem #5 Impaired Functional Mobil PT Goal 1 Goal Pt. will demonstrate less than 50% limitation on the LEFS indicating significant functional improvement.
--- NOTE | 2023-08-25 16:22 | PCPTNOTE ---
patient no call no show
--- NOTE | 2023-09-08 10:22 | PCPTNOTE ---
pt no show. left message
== END 2023-08-28 20:00 | disposition home or self-care (01) ==
LOC: CHSPT 14:11
PROVIDERS: Visit Provider Physician Assistant
DX: M25.561 Pain in right knee (principal)
CPT/HCPCS: 97014; 97110; 97140; 97161; 97530; G0283

== ENCOUNTER 2024-07-01 13:19 | Outpatient (CLI) | payer MEDICAID, SELFPAY ==
--- NOTE | ~2024-07-01 | MM_ITS ---
EXAMINATION: MM screening dulce BI w sebas HISTORY: Screening TECHNIQUE: Craniocaudal and mediolateral oblique 3-D tomosynthesis images were obtained and synthetic 2-D images were generated. CAD analysis was submitted and interpreted. COMPARISON: No prior mammogram is available for comparison at this institution. BREAST PARENCHYMAL COMPOSITION: Not dense: There are scattered areas of fibroglandular density. FINDINGS: There is no evidence of suspicious mass, calcification, or architectural distortion to sugg est malignancy in either breast. There has been no suspicious interval change. IMPRESSION: 1. No mammographic evidence of malignancy. 2. Recommend routine screening mammography in one year. BI-RADS Category 1: Negative Reviewed, dictated and finalized at location A. RIOR DECORATOR PAINTING
--- OUTSIDE RECORDS SUMMARY | 2024-07-01 14:04 | XMS_ITS | Clinical Summary ---
Author Organization [facility] Address [address] [place] [address] Care Team Providers Care Bin Tripper Operator Name Role Phone Halle Howell MD Unavailable [phone] Simon Wagoner Primary Care Provider [phone] Allergies No known active allergies Medications Xkj-Ed-Nkakdibs 0.18/0.215/0.25 mg-25 mcg per tabletIndications : Contraception Take 1 tablet by mouth every morning 07/11/19 22 Active cyclobenzaprine (FLEXERIL) 5 mg tablet Take 1 tablet (5 mg total) by mouth 3 (three) times a day as needed for muscle spasms 30 tablet 07/25/19 22 Active Additional Information Patient taking differently:5 mg oral2 times daily PRN, muscle spasms, Informant: Self, Reported on 07/20/2023 escitalopram (LEXAPRO) 20 mg tablet Take 1 tablet (20 mg total) by mouth daily 30 tablet 07/26/19 22 Active Additional Information Patient taking differently:20 mg oralEvery morning, Indications: Anxiety with Depression, Informant: Self, Reported on 07/20/2023 gabapentin (NEURONTIN) 600 mg tablet Take 1 tablet (600 mg total) by mouth 2 (two) times a day for 15 days 30 tablet 07/25/19 22 Active Additional Information Patient taking differently:600 mg oral 2 times daily,Indications: Neuropathic Pain, Informant: Self, Reported on 09/18/2021 lidocaine (LIDODERM) 5 % Place 1 patch on the skin daily for 15 days Remove & discard patch within 12 hours or as directed by . 15 patch 07/26/19 22 Active Additional Information Patient taking differently:1 patch transdermalAs needed, Remove & discard patch within 12 hours or as directed by MD.,Indications: Postherpetic Neuralgia, Informant: Self, Reported on 09/18/2021 amLODIPine (NORVASC) 5 mg tablet Take 1 tablet (5 mg total) by mouth daily 30 tablet 07/26/19 22 Active Additional Information Patient taking differently:5 mg oralEvery morning, Indications: hypertension, Informant: Self, Reported on 09/18/2021 polyethylene glycol (MIRALAX) 17 gram/dose powderIndications :constipation Take 17 g by mouth as needed 07/25/[address] (VOLTAREN) 75 mg EC tabletIndications :Osteoarthritis Take 1 tablet (75 mg total) by mouth every morning 08/10/19 22 Active acetaminophen (TYLENOL) 500 mg tablet Take 2 tablets (1,000 mg total) by mouth as needed for pain 07/25/19 22 Active traMADoL (ULTRAM) 50 mg tabletIndications :Pain Take 1 tablet (50 mg total) by mouth as needed for pain Active ascorbic acid (VITAMIN C) 500 mg tablet,chewableIn dications:Vitamin C Deficiency Take 500 mg by mouth daily after lunch Active potassium 99 mg tabletIndications :hypokalemia prevention Take 1 tablet (99 mg total) by mouth 2 (two) times a week Active calcium carb/vit D3/minerals (CALCIUM-VITAMIN D ORAL)Indications: supp Take 1 tablet by mouth 2 (two) times a week Active garlic tabletIndications :supp Take 1 tablet by mouth every morning Active acetaminophen (TYLENOL) 500 mg tablet Take 2 tablets (1,000 mg total) by mouth every 6 (six) hours as needed for pain 40 tablet 09/29/19 22 Active oxybutynin (DITROPAN) 5 mg tablet Take 1 tablet (5 mg total) by mouth 3 (three) times a day as needed (bladder spasms) for up to 20 doses 20 tablet 09/29/19 22 Active docusate sodium (COLACE) 100 mg capsuleIndication s:constipation Take 1 capsule (100 mg total) by mouth 2 (two) times a day as needed for constipation for up to 7 days 14 capsule 09/29/19 22 Active tamsulosin (FLOMAX) 0.4 mg extended release capsule Take 1 capsule (0.4 mg total) by mouth daily 30 capsule 09/29/19 22 Active Active Problems Problem Noted Date Diagnosed Date Sternal fracture 07/23/2021 Closed fracture of multiple ribs of left side Avulsion fracture of medial malleolus of left ti jh 07/23/2021 Hydronephrosis 07/23/2021 Acute pain due to trauma 07/23/2021 Closed displaced comminuted fracture of right pa tella 07/22/2021 Overview (07/22/2021): Added automatically from request for surgery [id number] Immunizations Name Administration Dates Next Due DTP 09/22/1981,09/16/1979,06/09/1979 ,02/04/1979 MMR 02/11/1990,04/26/1980 OPV 11/10/1985,09/22/1981,09/16/1979 ,06/09/1979,02/04/1979 Td, adsorbed 02/06/1996,11/10/1985 Tdap 07/22/2021,06/21/2019 Surgical History Surgery Date Site/Laterality Comments NEPHRECTOMY 06/02/2003 - 06/01/2004 Left enlarged left kidney: Left kidney Removed PATELLA FRACTURE SURGERY 07/03/2021 - 07/30/2021 Right URETERAL STENT PLACEMENT 05/11/2021 DILATION AND CURETTAGE, DIAGNOSTIC / THERAPEUTIC 05/02/2002 - 06/01/2002 Medical History Medical History Date Comments Hx Other Medical enlarged left k idgayle; Comments: JRB 07/06/2014 - Exposure to genital herpes Genit al herpes simplex Hx Other Medical ; Outc ome: 8lb(s) 7 oz Male Hx Other Medical ; Outc ome: 7lb(s) 12 oz Female Family History Medical History Relation Name Comments Other Maternal Grandmother kidney and bladder problems; Diabetes type II Mother and grandmother Diabetes mellitus type 2; Anesthesia problems Neg Hx Relation Name Status Comments Maternal Grandmother Mother and grandmother Social History Tobacco Use Types Packs/Day Years Used Date Smoking Tobacco: Every Day Cigarettes 0.3 32.1 Started: 1992 Smokeless Tobacco: Never Comments:Smoking History Pac ks/day: 4 Cigarettes Alcohol Use Standard Drinks/Week Comments Yes 0 (1 standard drink = 0.6 oz pur e alcohol) AUDIT-C Answer Date Recorded Q1: How often do you have a drink containing alc ohol? Monthly or less 09/28/2021 Q2: How many drinks containi ng alcohol do you have on a typical day when you are drinking? 1 or 2 09/28/2021 Q3: How often do you have si x or more drinks on one occasion? Never 09/28/2021 Comments No Sex and Gender Information Value Date Recorded Sex Assigned at Not on file Legal Sex Female 11:54 PM [employer] Gender Identity Not on file Sexual Orientation Not on file Obstetrics History Last Filed Vital Signs Vital Sign Reading Time Taken Comments Blood Pressure 122/74 07/20/2023 9:05 AM T[employer]ER SERVICEM[employer] Pulse 89 07/20/2023 9:05 AM T[employer]ER SERVICEM[employer] Temperature 36.8 ??C (98.3 ??F) 07/20/2023 9:05 AM CS T Respiratory Rate 18 07/20/2023 9:05 AM T[employer]ER SERVICEMAN Oxygen Saturation 99% 07/20/2023 9:05 AM TANKER SERVICEMAN Inhaled Oxygen Concentration - - Weight 93 kg (205 lb) 07/20/2023 9:05 AM TANKER SERVICEM[employer] Height 165.1 cm (5' 5 ) 07/20/2023 9:05 AM TANKER SERVICEMAN Body Mass Index 34.11 07/20/2023 9:05 AM TANKER SERVICEMAN Plan of Treatment Health Maintenance Due Date Last Done Comments Breast Cancer Screening-Mammogram 1978 Cervical Cancer Screening 1978 Colon Cancer Screening-Colonoscopy 1978 Depression Screening 1978 Hepatitis C Screening 1978 Pneumococcal vaccine <65 (1 of 2 - PCV) 1984 Hepatitis B Screening 1996 Regular Well Visit/Exam 18-64 1996 Influenza Vaccine (#1) 2024 DTaP/Tdap/Td Vaccine (7 - Td or Tdap) 07/22/2031 07/22/2021, 06/21/2019, 02/06/1996, Additional history exists HPV Vaccines Aged Out No longer eligi ble based on patient's age to complete this topic Medical Devices Implanted Type Area Automation Qa Lead Device Identifier Shelf Expiration Date Model / Serial / Lot Synthes 202.900 2.7mm 5mm 40mm 2.5mm Self Tap Stardrive Cortex T8 Screw Bone - [id number] Implanted:Qty: 1 on 07/23/2021 by Delon Maya MD at [facility] Right: Patella Synthes I 202.900 / / Synthes 201.380.97 2mm 36mm Self Tap Self Retain Stardrive Cortex T6 Screw Bone - [id number] Implanted:Qty: 1 on 07/23/2021 by Delon Maya MD at [facility] Right: Patella Synthes I 201.380.97 / / Synthes 02.211.224lcp 5x12 Hole Variable Angle Lock Mesh Forefoot Midfoot Plate - [id number] Implanted:Qty: 1 on 07/23/2021 by Delon Maya MD at [facility] Right: Patella Synthes I 02.211.224 / / Synthes 202.894 2.7mm 5mm 34mm 2.5mm Self Tap Stardrive Cortical T8 Screw Bone - [id number] Implanted:Qty: 2 on 07/23/2021 by Delon Maya MD at [facility] Right: Patella Synthes I 202.894 / / Synthes 202.963 2.7mm 5mm 44mm 2.5mm Self Tap Stardrive Cortical T8 Screw Bone - [id number] Implanted:Qty: 1 on 07/23/2021 by Delon Maya MD at [facility] Right: Patella Synthes I 202.963 / / Synthes 02.211.014 2.7mm 14mm Self Tap Lock Variable Angle Stardrive T8 Screw Bone - [id number] Implanted:Qty: 2 on 07/23/2021 by Delon Maya MD at [facility] Right: Patella Synthes I 02.211.014 / / Synthes 02.211.018 2.7mm 18mm Self Tap Lock Variable Angle Stardrive T8 Screw Bone - [id number] Implanted:Qty: 2 on 07/23/2021 by Delon Maya MD at [facility] Right: Patella Synthes I 02.211.018 / / Synthes 02.211.026 2.7mm 26mm Self Tap Lock Variable Angle Stardrive T8 Screw Bone - [id number] Implanted:Qty: 1 on 07/23/2021 by Delon Maya MD at [facility] Right: Patella Synthes I 02.211.026 / / Explanted Type Area Automation Qa Lead Device Identifier Shelf Expiration Date Model / Serial / Lot [employer] Universa 6fr 22cm Radiopaque Positioner Monofilament Tether 2 [id number] - Sn/A - [id number] Implanted:Qty: 1 on 09/28/2021 by Tere Gonzalez MD at [facility] Explanted:Qty: 1 on 12/20/2021 by Starla Powell NP Stent Right: Ureter [employer] 08/08/2024 [id number] / N/A / [id number] [employer] [id number] Eryn .062in 9in 1 Trocar Smooth Wire Fixation - [id number] Explanted:Qty: 7 on 07/23/2021 by Delon Maya MD at [facility] Right: Patella [employer] [id number] / / Synthes 201.370.97 2mm 20mm Self Tap Self Retain Stardrive Cortex T6 Screw Bone - [id number] Explanted:Qty: 1 on 07/23/2021 by Delon Maya MD at [facility] Right: Patella Synthes I 201.370.9 7 / / Insurance [facility] IDPA [facility] Advance Directives For more information, please contact: [phone] * Full Code (Latest Code Status on File) Date Activated Date Inactivated Comments 07/22/2021 9:45 PM 07/26/2021 4:38 PM Care Teams Bin Tripper Operator Relationship Specialty Start Date End Date Simon Wagoner PA [address] [place] [address] PCP - General Family Practice 11/05/21 Halle Howell MD Consulting Physician Orthopedic Surgery 07/25/21
--- OUTSIDE RECORDS SUMMARY | 2024-07-01 14:04 | XMS_ITS | Patient Health Summary ---
Author Organization [facility] Address [address] [address] Care Team Providers Care Autocad Electrical Designer Name Role Phone Simon Wagoner Primary Care Provider [phone] Note from [facility],non-owned Affiliates and Associated Physician Practices is amultiple site organization consisting of ambulatory clinics and hospital sitesin [place], [place], [place] and [place]. This disclosure is being madepursuant to the Care Everywhere program and may not contain all information available regarding this patient. Last updated 18.[facility] Allergies No known active allergies Medications * Be aware that medications may not be up to date on this document. Alwaysverify current medications with the patient. * amLODIPine (NORVASC) 5 MG tablet(Started 02/10/2020) * diclofenac sodium EC (VOLTAREN) 75 MG tablet(Started 01/11/2020) * traMADol (ULTRAM) 50 MG tablet(Started 02/04/2020) * escitalopram (LEXAPRO) 20 MG tablet(Started 01/04/2020) * gabapentin (NEURONTIN) 600 MG tablet(Started 03/02/2020) * cyclobenzaprine (FLEXERIL) 10 MG tablet(Started 02/10/2020) Social History Tobacco Use Types Packs/Day Years Used Date Smoking Tobacco: Every Day Smokeless Tobacco: Never Alcohol Use Standard Drinks/Week Comments Not Currently 0 (1 standard drink = 0.6 oz pur e alcohol) Sex and Gender Information Value Date Recorded Sex Assigned at Not on file Gender Identity Not on file Sexual Orientation Not on file Last Filed Vital Signs Vital Sign Reading Time Taken Comments Blood Pressure 144/83 03/15/2020 9:12 AM CDT Pulse 90 03/15/2020 9:12 AM CDT Temperature 36.5 ??C (97.7 ??F) 03/15/2020 9:12 AM CD T Respiratory Rate - - Oxygen Saturation 100% 03/15/2020 9:12 AM CDT Inhaled Oxygen Concentration - - Weight 99.3 kg (219 lb) 03/15/2020 9:12 AM CDT Height 166.4 cm (5' 5.5 ) 03/15/2020 9:12 AM CDT Body Mass Index 35.89 03/15/2020 9:12 AM CDT Procedures * EMG WITH NERVE CONDUCTION STUDY(Performed 04/18/2020) Performed for Lumbar radiculopathy * MRI LUMBAR SPINE WO CONTRAST(Performed 04/18/2020) Performed for Lumbar radiculopathy * XR LUMBAR SPINE 4VW OR MORE(Performed 03/15/2020) Performed for Lumbar radiculopathy Results * EMG WITH NERVE CONDUCTION STUDY (04/18/2020 4:26 PM [employer]) Narrative Sally Prabhakar MD - 04/18/2020 4:26 PM [employer] Slaly Prabhakar MD ? 04/18/2020 ??4:26 PM EDX of the legs is normal. The full report will be in Epic under Media. Thank you for the referral. Sally Prabhakar M.D José Miguel Pressley MD NEUROLOGY ORDERA BLES * MRI LUMBAR SPINE WO CONTRAST (04/18/2020 12:54 PM [employer]) Anatomical Region Laterality Modality Spine Magnetic Resonan ce 04/18/2020 1:03 PM [employer] DEPUTY SHERIFF Impressions 04/18/2020 1:13 PM [employer]PUT[employer]ERIFF IMPRESSION: 1.Lumbar levoscoliosis, centered at L3-4. 2.Severe degenerative changes at L3-4 and L4-5. 3.Severe spinal canal stenosis at L4-5 with large disc herniation leading to cauda equina clumping. 4.Severe stenosis of right L3-4 and left L4-5 neural foramina. This report was electronically signed by PRACHI GAUTAM ??on 04/18/2020 1:13 PM . Narrative 04/18/2020 1:13 PM [employer] EXAMINATION: Magnetic resonance imaging (MRI) of the lumbar spine without contrast HISTORY: M54.16: Lumbar radiculopathy TECHNIQUE: MRI of the lumbar spine was performed without intravenous contrast according to standard protocol. COMPARISON: None FINDINGS: The last well-formed disc is labeled as L5-S1. There is lumbar scoliosis, centered at L3-4 with likely levoscoliotic curvature. The lumbar lordosis is maintained. ??There is no subluxation. The vertebral bodies are normal in height. ??There are no aggressive appearing osseous lesions. ??There is no epidural fluid collection. The conus medullaris lies at L1-2. ??The cauda equina is normal in appearance. Individual level analysis is as follows: L1-2: No focal disc herniation, spinal canal or foraminal stenosis. L2-3: No focal disc herniation, spinal canal or foraminal stenosis. Mild facet degenerative changes. L3-4: Significant loss of disc space height with endplate sclerotic changes on the right. Mild circumferential disc bulge with superimposed right foraminal to extraforaminal disc osteophyte complex. Mild left and moderate right facet hypertrophy. No spinal canal stenosis. Severe right foraminal stenosis. L4-5: Moderate loss of disc space height and left-sided endplate sclerotic changes. Mild left and moderate right facet hypertrophy. Significant ligamentum flavum thickening. Mild circumferential disc bulge with superimposed large central to right central disc protrusion. The herniated disc material measures approximately 1.5 cm AP, 1 cm in transverse and 1.2 cm in height. This leads to severe spinal canal stenosis and clumping of the cauda equina nerve roots. There is severe left foraminal stenosis and mild right foraminal narrowing. L5-S1: No focal disc herniation, spinal canal or foraminal stenosis. Mild bilateral facet hypertrophy. The paraspinal soft tissues are within normal limits. The left kidney is absent. Procedure Note Prachi Gautam MD - 04/18/2020 EXAMINATION: Magnetic resonance imaging (MRI) of the lumbar spinewithout contrast HISTORY: M54.16: Lumbar radiculopathy TECHNIQUE: MRI of the lumbar spine was performed without intravenous contrast according to standard protocol. COMPARISON: None FINDINGS: The last well-formed disc is labeled as L5-S1. There is lumbar scoliosis, centered at L3-4 with likely levoscoliotic curvature. The lumbar lordosis is maintained. There is no subluxation. The vertebral bodies are normal in height. There are no aggressive appearing osseous lesions. There is no epidural fluid collection. The conus medullaris lies at L1-2. The cauda equina is normal inappearance. Individual level analysis is as follows: L1-2: No focal disc herniation, spinal canal or foraminal stenosis. L2-3: No focal disc herniation, spinal canal or foraminal stenosis. Mild facet degenerative changes. L3-4: Significant loss of disc space height with endplate sclerotic changes on the right. Mild circumferential disc bulge with superimposed right foraminal to extraforaminal disc osteophyte complex. Mild left and moderate right facet hypertrophy. No spinal canal stenosis. Severe right foraminal stenosis. L4-5: Moderate loss of disc space height and left-sided endplatesclerotic changes. Mild left and moderate right facet hypertrophy. Significant ligamentum flavum thickening. Mild circumferential disc bulge with superimposed large central to right central disc protrusion. Theherniated disc material measures approximately 1.5 cm AP, 1 cm in transverse and1.2 cm in height. This leads to severe spinal canal stenosis and clumping of the cauda equina nerve roots. There is severe left foraminal stenosisand mild right foraminal narrowing. L5-S1: No focal disc herniation, spinal canal or foraminal stenosis.Mild bilateral facet hypertrophy. The paraspinal soft tissues are within normal limits. The left kidney is absent. IMPRESSION: 1.Lumbar levoscoliosis, centered at L3-4. 2.Severe degenerative changes at L3-4 and L4-5. 3.Severe spinal canal stenosis at L4-5 with large disc herniationleading to cauda equina clumping. 4.Severe stenosis of right L3-4 and left L4-5 neural foramina. This report was electronically signed by PRACHI GAUTAM on 04/18/2020 1:13 PM . José Miguel Pressley MD MR ORDERABLES * XR LUMBAR SPINE 4VW OR MORE (03/15/2020 11:16 AM CDT) Anatomical Region Laterality Modality Spine Radiographic Anamaria ging 03/15/2020 11:5 2 AM CDT Impressions 03/15/2020 11:54 AM CDT 1. ??No subluxation or instability. 2. ??L3-L4 and L4-L5 chronic spondylosis. *Reading Radiologist: Regis Acosta on 03/15/2020 at 11:54 AM Narrative 03/15/2020 11:54 AM CDT Lumbosacral spine, 4 views with flexion and extension DATE: 03/15/2020. INDICATION: Lumbar radiculopathy. FINDINGS: The L3-L4 and L4-L5 interspaces are narrowed along with small posterior osteophytes. ??There is no subluxation or instability on flexion or extension. ??The remaining interspaces are preserved. ??There is no fracture. ??SI joints are normal. Procedure Note Regis Acosta MD - 03/15/2020 Lumbosacral spine, 4 views with flexion and extension DATE: 03/15/2020. INDICATION: Lumbar radiculopathy. FINDINGS: The L3-L4 and L4-L5 interspaces are narrowed along with small posterior osteophytes. There is no subluxation or instability on flexion or extension. The remaining interspaces are preserved. There is no fracture. SI joints are normal. IMPRESSION 1. No subluxation or instability. 2. L3-L4 and L4-L5 chronic spondylosis. *Reading Radiologist: Regis Acosta on 03/15/2020 at 11:54 AM José Miguel Pressley MD DIAGNOSTIC IMAGI NG ORDERABLES Care Teams Autocad Electrical Designer Relationship Specialty Start Date End Date Simon Wagoner PA [address] [place] [address] PCP - General 11/25/18
--- OUTSIDE RECORDS SUMMARY | 2024-07-01 14:04 | XMS_ITS | Referral Summary ---
Author Organization [facility] Address [address] [place] [address] Care Team Providers Care Middle School Sports Coach Name Role Phone Halle Howell MD Unavailable [phone] Simon Wagoner Primary Care Provider [phone] Allergies No known active allergies Medications Gnw-Qh-Vkvxdtgs 0.18/0.215/0.25 mg-25 mcg per tabletIndications : Contraception [...] (07/22/2021): Added automatically from request for surgery [id number] Immunizations Name Administration Dates Next Due DTP 09/22/1981,09/16/1979,06/09/1979 ,02/04/1979 MMR 02/11/1990,04/26/1980 OPV 11/10/1985,09/22/1981,09/16/1979 ,06/09/1979,02/04/1979 Td, adsorbed 02/06/1996,11/10/1985 Tdap 07/22/2021,06/21/2019 Social History Tobacco Use Types Packs/Day Years [...] on file Legal Sex Female 11:54 PM EMPLOYEE RELATIONS ADVISOR Gender Identity Not on file Sexual Orientation Not on file Last Filed Vital Signs Vital Sign Reading Time Taken Comments Blood Pressure 122/74 07/20/2023 9:05 AM EMPLOYEE RELATIONS ADVISOR Pulse 89 07/20/2023 9:05 AM EMPLOYEE RELATIONS ADVISOR Temperature 36.8 ??C (98.3 ??F) 07/20/2023 9:05 AM CS T Respiratory Rate 18 07/20/2023 9:05 AM EMPLOYEE RELATIONS ADVISOR Oxygen Saturation 99% 07/20/2023 9:05 AM EMPLOYEE RELATIONS ADVISOR Inhaled Oxygen Concentration - - Weight 93 kg (205 lb) 07/20/2023 9:05 AM EMPLOYEE RELATIONS ADVISOR Height 165.1 cm (5' 5 ) 07/20/2023 9:05 AM EMPLOYEE RELATIONS ADVISOR Body Mass Index 34.11 07/20/2023 9:05 AM EMPLOYEE RELATIONS ADVISOR Plan of Treatment Not on file Medical Devices Implanted Type Area Parts Counter Clerk Device Identifier Shelf Expiration Date Model / Serial / Lot Synthes 202.900 2.7mm 5mm 40mm 2.5mm Self Tap Stardrive Cortex T8 Screw Bone - [id number] Implanted:Qty: 1 on 07/23/2021 by Delon Maya MD at [facility] Right: Patella Synthes I 202.900 / / Synthes 201.380.97 2mm 36mm Self Tap Self Retain Stardrive Cortex T6 Screw Bone - [id number] Implanted:Qty: 1 on 07/23/2021 by Delon Maya MD at [facility] Right: Patella Synthes I [id number] / / Synthes 02.211.224lcp 5x12 Hole Variable Angle Lock Mesh Forefoot Midfoot Plate - [id number] Implanted:Qty: 1 on 07/23/2021 by Delon Maya MD at [facility] Right: Patella Synthes I 02.224 / / Synthes 202.894 2.7mm 5mm 34mm 2.5mm Self Tap Stardrive Cortical T8 Screw Bone - [id number] Implanted:Qty: 2 on 07/23/2021 by Delon Maya MD at [facility] Right: Patella Synthes I 202.894 / / Synthes 202.963 2.7mm 5mm 44mm 2.5mm Self Tap Stardrive Cortical T8 Screw Bone - [id number] Implanted:Qty: 1 on 07/23/2021 by Delon Maya MD at [facility] Right: Patella Synthes I 202.963 / / Synthes 02.211.014 2.7mm 14mm Self Tap Lock Variable Angle Stardrive T8 Screw Bone - [id number] Implanted:Qty: 2 on 07/23/2021 by Delon Maya MD at [facility] Right: Patella Synthes I 014 / / Synthes 018 2.7mm 18mm Self Tap Lock Variable Angle Stardrive T8 Screw Bone - [id number] Implanted:Qty: 2 on 07/23/2021 by Delon Maya MD at [facility] Right: Patella Synthes I 018 / / Synthes 026 2.7mm 26mm Self Tap Lock Variable Angle Stardrive T8 Screw Bone - [id number] Implanted:Qty: 1 on 07/23/2021 by Delon Maya MD at [facility] Right: Patella Synthes I 026 / / Explanted Type Area Parts Counter Clerk Device Identifier Shelf Expiration Date Model / Serial / Lot [employer] Universa 6fr 22cm Radiopaque Positioner Monofilament Tether 2 [id number] - Sn/A - [id number] Implanted:Qty: 1 on 09/28/2021 by Tere Gonzalez MD at [facility] Explanted:Qty: 1 on 12/20/2021 by Starla Powell, SUZY Stent Right: [employer] 08/08/2024 [id number] / N/A / [id number] [employer] [id number] Eryn .062in 9in 1 Trocar Smooth Wire Fixation - [id number] Explanted:Qty: 7 on 07/23/2021 by Delon Maya MD at [facility] Right: Patella [employer] [id number] / / Synthes 201.370.97 2mm 20mm Self Tap Self Retain Stardrive Cortex T6 Screw Bone - [id number] Explanted:Qty: 1 on 07/23/2021 by Delon Maya MD at [facility] Right: Patella Synthes I 201.370.9 7 / / Insurance [facility] Advance Directives For more information, please contact: [phone] * Full Code (Latest Code Status on File) Date Activated Date Inactivated Comments 07/22/2021 9:45 PM 07/26/2021 4:38 PM Care Teams Middle School Sports Coach Relationship Specialty Start Date End Date Simon Wagoner PA [address] [place] [address] PCP - General Family Practice 11/05/21 Halle Howell MD Consulting Physician Orthopedic Surgery 07/25/21
--- OUTSIDE RECORDS SUMMARY | 2024-07-01 14:04 | XMS_ITS | Clinical Summary ---
Author Organization [facility] Address [address] [place] [address]. [place], [place] [address] [place] [address] Care Team Providers Care Heel Cover Splitter Name Role Phone Unavailable Primary Care Provider Unavailabl e Social History Tobacco Use Types Packs/Day Years Used Date Smoking Tobacco: Never Assessed Comments Unknown Sex and Gender Information Value Date Recorded Sex Assigned at Not on file Legal Sex Female 8:31 PM CDT Gender Identity Not on file Sexual Orientation Not on file Plan of Treatment Health Maintenance Due Date Last Done Comments Cervical Cancer Screening Pa p Smear (Age 30 to 64) Every 3 Years 1978 Colorectal Cancer Screening Colonoscopy (10 Years) 1978 Annual Physical 1981 Hepatitis C 1996 DTaP, Tdap and Td Vaccines ( 1 - Tdap) 1997 Hepatitis B Vaccines (1 of 3 - 19+ 3-dose series) 1997 Cervical Cancer Screening Pa p with HPV Testing (Age 30 to 64) Every 5 Years 2008 Cervical Cancer Screening with HPV 2008 Mammogram Screening 2018 COVID-19 Vaccine (2023-2 5 season) 2024 Influenza Adult (#1) 2024 HPV Vaccines Aged Out No longer eligi ble based on patient's age to complete this topic Meningococcal B Vaccine Aged Out No l onger eligible based on patient's age to complete this topic Meningococcal Vaccine Aged Out No dyan raphael eligible based on patient's age to complete this topic Pneumococcal Vaccine: Pediat rics (0 to 5 Years) and At-Risk Patients (6 to 64 Years) Aged Out No longer eligible b ased on patient's age to complete this topic RSV Immunizations Under 20 Months Aged Out No longer eligible based on patient's age to complete this topic
--- OUTSIDE RECORDS SUMMARY | 2024-07-01 14:04 | XMS_ITS | Clinical Summary ---
Author Organization [facility] Address [address] [place] [address] Care Team Providers Care Liquor Inspector Name Role Phone Simon Wagoner Primary Care Provider [phone] Source Comments [facility],non-owned Affiliates and Associated Physician Practices is amultiple site organization consisting of ambulatory clinics and hospital sitesin [place], [place], [place] and [place]. This disclosure is being madepursuant to the Care Everywhere program and may not contain all information available regarding this patient. Last updated 18.[facility] Allergies No known active allergies Medications * Be aware that medications may not be up to date on this document. Alwaysverify current medications with the patient. Medication Sig Dispensed Refills Start Date End Date Status amLODIPine (NORVASC) 5 MG tablet 02/10/2020 Active diclofenac sodium EC (VOLTAREN) 75 MG tablet 01/11/2020 Active traMADol (ULTRAM) 50 MG tablet 02/04/2020 Active escitalopram (LEXAPRO) 20 MG tablet 01/04/2020 Active gabapentin (NEURONTIN) 600 MG tablet 03/02/2020 Active cyclobenzaprine (FLEXERIL) 10 MG tablet 02/10/2020 Active Family History Medical History Relation Name Comments Diabetes - Gestational Mother Relation Name Status Comments Father Alive Mother Alive Social History Tobacco Use Types Packs/Day Years [...] Mass Index 35.89 03/15/2020 9:12 AM CDT Plan of Treatment Health Maintenance Due Date Last Done Comments COLOGUARD (AGES 45-75) - COL ON CA SCREENING 1978 COLON MONITORING 1978 COLONOSCOPY - COLON CA SCREENING 1978 CT COLONOGRAPHY - COLON CA SCREENING 1978 Colorectal Cancer Screening 1978 FIT - COLON CA SCREENING 1978 FLEX SIG - COLON CA SCREENING 1978 LIPID TESTING 1978 MAMMOGRAM 1978 PAP SMEAR 1978 HIV SCREENING 1993 HEPATITIS C SCREENING 11/19/1996 DTAP/TDAP/TD VACCINES (1 - Tdap) 1997 HEPATITIS B VACCINE (1 of 3 - 19+ 3-dose series) 1997 PNEUMOCOCCAL VACCINE (1 of 2 - PCV) 1997 SCREENING FOR DIABETES 03/15/2020 COVID-19 VACCINE (1 - 2023-2 5 season) 2024 INFLUENZA VACCINE (#1) 2024 DEPRESSION SCREENING 06/02/2024 ZOSTER VACCINE (1 of 2) 2028 HIB VACCINE Aged Out No longer eligi ble based on patient's age to complete this topic HPV VACCINE Aged Out No longer eligi ble based on patient's age to complete this topic MENINGOCOCCAL (Group B) VACCINE Aged Out No longer eligible based on patient's age to complete this topic MENINGOCOCCAL VACCINE Aged Out No dyan raphael eligible based on patient's age to complete this topic Care Teams Liquor Inspector Relationship Specialty Start Date End Date Simon Wagoner PA [address] [place] [address] PCP - General 11/25/18
--- OUTSIDE RECORDS SUMMARY | 2024-07-01 14:04 | XMS_ITS | Referral Summary ---
Author Organization [facility] Address [address] [place] [address] Care Team Providers Care Ic Designer Custom Name Role Phone Simon Wagoner Primary Care Provider [phone] Source Comments [facility],non-owned Affiliates and Associated Physician Practices is amultiple site organization consisting of ambulatory clinics and hospital sitesin [place], [place], [place] and [place]. This disclosure is being madepursuant to the Care Everywhere program and may not contain all information available regarding this patient. Last updated 18.[facility] Allergies No known active allergies Medications * [...] cyclobenzaprine (FLEXERIL) 10 MG tablet 02/10/2020 Active Social History Tobacco Use Types Packs/Day Years [...] 03/15/2020 9:12 AM CDT Plan of Treatment Not on file Care Teams Ic Designer Custom Relationship Specialty Start Date End Date Simon Wagoner PA [address] [place] [address] PCP - General 11/25/18
== END 2024-07-01 13:20 | disposition home or self-care (01) ==
LOC: CHSIMG 13:21
PROVIDERS: PCP Physician Assistant; Visit Provider Nurse Practitioner Women's Health
DX: Z12.31 Encounter for screening mammogram for malignant neoplasm of breast (principal)
CPT/HCPCS: 77063; 77067

== ENCOUNTER 2025-04-03 18:12 | Emergency (ER) | payer BC, SELFPAY ==
--- NOTE | ~2025-04-03 | CT_ITS ---
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 COMPARISON: No comparisons available. TECHNIQUE: CT scan of the abdomen and pelvis was performed without IV contrast. One or more of the following dose reduction techniques were used: automated exposure control, adjustment of the mA and/or kV according to patient size, use of iterative reconstruction technique. Unless otherwise stated, incidental findings do not require dedicated follow up imaging FINDINGS: CT abdomen: LUNG BASES: The lung bases demonstrate scattered punctate calcified granulomas. LIVER: Unremarkable, liver contours intact, no lesions. SPLEEN: There are punctate calcified splenic granulomas.. KIDNEYS: Right Kidney: Right kidney perinephric stranding is noted with moderate hydronephrosis and hydroureter although there is no obstructing distal ureteral calculus identified. Left Kidney: The left kidney is not identified, there is no abnormality noted of the left renal bed. ADRENAL GLANDS: Unremarkable. PANCREAS: Mild pancreatic atrophy. GALLBLADDER/BILIARY: Unremarkable. No biliary dilatation. STOMACH AND ESOPHAGUS: The stomach is decompressed. BOWEL/MESENTERY: Moderate fecal content. No colitis or diverticulitis. Appendix normal. Mesentery normal. No thickened or dilated loops of small bowel. ADENOPATHY/RETROPERITONEUM: No lymphadenopathy. AORTA/VASCULATURE: Normal caliber aorta. FREE FLUID OR FREE AIR: No free fluid.. CT pelvis: SOLID ORGANS/REPRODUCTIVE: Unremarkable. BLADDER: Within normal limits. OSSEOUS STRUCTURES: No acute osseous abnormality.No suspicious lesions. OVERLYING SOFT TISSUES: Unremarkable. IMPRESSION: Right-sided hydronephrosis and hydroureter although there is no obstructing calcified calculus identified. Findings may relate to a recently passed calculus however the differential includes an obstructing noncalcified calculus or stricture. Correlate with urinalysis. Follow-up is recommended to assess resolution Reviewed, dictated and finalized at location P. PER FEEDER IMPRESSION: Right-sided hydronephrosis and hydroureter although there is no obstructing robyn cified calculus identified. Findings may relate to a recently passed calculus h owever the differential includes an obstructing noncalcified calculus or strict ure. Correlate with urinalysis. Follow-up is recommended to assess resolution
[2025-04-03 18:12] VITALS: BP 161/103; PULSE 92; RESP 18; TEMP 37.4; O2SAT 100
--- NOTE | 2025-04-03 18:24 | ED.FEMALEGU ---
HPI - Female Genitourinary General Chief complaint: Urogenital-Female Stated complaint: right flank pain Time Seen by Provider: 04/03/25 18:21 Source: patient and family Mode of arrival: ambulatory Limitations: no limitations History of Present Illness HPI Narrative: Patient is a 44-year-old female with right flank pain for the past 2 days. She had some urinary changes over the past 4 days. The pain is in her right lower back without movement. She has associated nausea without vomiting. No chest pain or shortness of breath. No diarrhea. She had kidney stone back in 2020 at 11 mm and required a stent and lithotripsy. Patient only has 1 kidney on the right. MD elicited complaint: dysuria, UTI, back pain (Right lower), flank pain (Right) and urinary incontinence Pertinent past history: other (Kidney stones) Onset (ago): day(s) (4) Location of symptoms: flank (Right) Severity: moderate Female Urogenital Radiation: Non-Radiating Severity scale (1-10): 5 Quality of pain: cramping and sharp Consistency: constant Vaginal discharge: none Vaginal bleeding: none (She just finished her menstrual cycle yesterday) Urinary symptoms: Dysuria, Urgency, Frequency and Flank Pain (Right) Exacerbating factors: none Relieving factors: none Associated symptoms: nausea and back pain (Right lower) Treatment prior to arrival: none Sexual activity: Yes Patient : No Related Data Home Medications ?Medication ?Instructions ?Recorded ?Confirmed ?Last Taken ?Type cyclobenzaprine 10 mg tablet 10 mg PO TID PRN Back Pain 02/25/20 01/22/22 Unknown History diclofenac sodium 75 mg 75 mg PO BID 02/25/20 01/22/22 Unknown History tablet,delayed release escitalopram oxalate 20 mg tablet 20 mg PO DAILY 02/25/20 01/22/22 Unknown History gabapentin 600 mg tablet 600 mg PO QID 02/25/20 01/22/22 Unknown History Allergies Allergy/AdvReac Type Severity Reaction Status Date / Time No Known Allergies Allergy Unknown Verified 04/03/25 18:19 Review of Systems Review of Systems: All systems reviewed & are unremarkable except as noted in HPI and below Constitutional: Constitutional: Reports no additional constitutional complaints Eyes: Eyes: Reports no additional eye complaints ENT: Reports system reviewed and no additional complaints, except as documented Cardiovascular: Cardiovascular: Reports no additional cardiovascular complaints Respiratory: Respiratory: Reports no additional respiratory complaints Gastrointestinal: Gastrointestinal: Reports no additional gastrointestinal complaints Genitourinary: Genitourinary: Reports no additional female genitourinary complaints Musculoskeletal: Musculoskeletal: Reports no additional musculoskeletal complaints Integumentary/Breasts: Skin/Breast: Reports system reviewed and no additional complaints, except as docu Neurologic: Reports system reviewed and no additional complaints, except as documented Psychiatric: Psychiatric: Reports no additional psychiatric complaints Endocrine: Endocrine: Reports no additional endocrine complaints Hematologic/Lymphatic: Hematologic/Lymphatic: Reports no additional hematologic/lymphatic complaints Allergic/Immunologic: Allergic/Immunologic: Reports no additional allergic/immunologic complaints PMFSH Past Medical History Medical History (Updated 04/03/25 @ 21:12 by Tejinder Aleman MD) Chronic back pain Depression Anxiety Hypertension Surgical History Surgical History History of nephrectomy Family History Family History Mother No problems noted. Father No problems noted. Social History Social History Additional smoking assessment comments: smokes 4-5 cigarettes a day Alcohol use details: does not drink alcohol Substance use: never Exam Const: General: ill appearing Nutritional Appearance: well nourished Orientation/consciousness: patient oriented x3 Limitations: no limitations HENMT: Head: normal to inspection Ears: external ears normal Face/Nose/Sinus: Normal external nose present Eyes: Conjunctivae: conjunctivae normal Pupils: Equal, round and reactive pupils present EOM: EOMs intact bilaterally Neck: Neck: normal visual inspection Chest: Chest palpation & inspection: normal inspection of the chest Resp: Effort & Inspection: normal respiratory effort and not labored Auscultation: clear to auscultation bilaterally and no crackles Cardio: Rate: regular rate Rhythm: regular rhythm Heart sounds: no murmurs GI: Inspection: non-distended GI Palp: Yes Soft to palpation, Yes Tenderness to palpation present (GI) (Right flank to right lower back), No Guarding due to palpation present (GI), No Rigid due to palpation, No Hernia present, No Palpable mass present and No Rebound tenderness present Auscultation: normal bowel sounds : General: Yes bladder normal to palpation Back/Spine/Pelvis: Back: No no CVA tenderness and CVA tenderness (Right flank) Skin: General skin exam: normal color Rashes: no rashes Wounds: no wounds Neuro: General: patient oriented x3, moves all extremities and no meningeal signs Extrem: General: normal to inspection, no clubbing, cyanosis or edema and no pedal edema Psych: Appearance: grossly normal and well kempt Mental Status: mental status grossly normal Affect: normal affect Attitude: cooperative Course Vital Signs Vital signs: Vital Signs Temperature 37.4 C 04/03/25 18:12 Pulse Rate 92 04/03/25 18:12 Respiratory Rate 18 04/03/25 18:12 Blood Pressure 161/103 H 04/03/25 18:12 Pulse Oximetry 100 04/03/25 18:12 Oxygen Delivery Room Air 04/03/25 18:12 Temperature 37.4 C 04/03/25 18:12 Pulse Rate 89 04/03/25 19:00 Respiratory Rate 20 04/03/25 19:00 Blood Pressure 155/93 H 04/03/25 19:00 Pulse Oximetry 95 04/03/25 19:00 Oxygen Delivery Room Air 04/03/25 19:00 MDM - Female Genitourinary MDM Narrative Medical decision making narrative: Patient is a 44-year-old female with right flank pain for the past 2 days and urinary symptoms for the past 4 days. History of kidney stones. We will do a kidney stone workup at this time. Toradol IM. Labs. CT scan. CT scan shows right hydronephrosis but no kidney stone. Possibility exists of a passed stone, a noncalcified stone or stricture of the ureter. Discussed case with [facility] urologist and he accepted transfer at this time for further evaluation and treatment. Lab Data Attestation: I reviewed the patient's lab results. 04/03/25 18:51 04/03/25 18:51 Labs: Lab Results 04/03/25 04/03/25 04/03/25 Range/Units 18:50 18:51 19:22 WBC 14.5 H (4.8-10.8) K/mm3 RBC 4.41 (4.20-5.40) M/mm3 Hgb 13.0 (12.0-15.0) g/dL Hct 39.1 (35.0-49.0) % MCV 88.7 (78.0-102.0) fL MCH 29.5 (27.0-31.0) pg MCHC 33.2 (32-36) g/dL RDW 13.1 (11.6-14.4) % Plt Count 241 (150-420) K/mm3 MPV 10.0 (9.2-11.8) fl Immature Gran % (Auto) 0.4 H (0.0-0.0) % Neut % (Auto) 83.3 H (50.0-70.0) % Lymph % (Auto) 8.8 L (18.0-42.0) % [place] % (Auto) 6.1 (2.0-11.0) % Eos % (Auto) 0.8 L (1.0-6.0) % Baso % (Auto) 0.6 (0.0-1.0) % Lymph # (Auto) 1.28 (1.10-4.50) K/mm3 [place] # (Auto) 0.88 (0.10-0.90) K/mm3 Eos # (Auto) 0.11 (0.02-0.50) K/mm3 Baso # (Auto) 0.08 (0.00-0.10) K/mm3 Abs Immat Gran (auto) 0.06 H (0.00-0.00) K/mm3 Absolute Neuts (auto) 12.09 H (1.70-7.20) K/mm3 Absolute Nucleated RBC 0.00 (0.00-0.00) K/mm3 Nucleated RBC % 0.0 (0-0.0) % Sodium 139 (137-145) mmol/L Potassium 4.0 (3.4-5.0) mmol/L Chloride 104 (98-107) mmol/L Carbon Dioxide 25 (22-30) mmol/L Anion Gap 10 (4-12) mmol/L BUN 17 (7-17) mg/dL Creatinine 0.93 (0.7-1.0) mg/dL Estim Creat Clear Calc 71 ml/min Estimated GFR > 60 (59 - ) Glucose 99 (65-110) mg/dL Calculated Osmolality 289 (285-295) mOsm/kg Lactic Acid 0.7 (0.4-2.0) mmol/L Calcium 9.8 (8.4-10.2) mg/dL Total Bilirubin 1.0 (0.2-1.3) mg/dL AST 32 (14-36) U/L ALT 35 (6-35) U/L Alkaline Phosphatase 78 (38-126) U/L Troponin I < 0.012 (0.000-0.034) ng/mL Total Protein 10.1 H (6.3-8.2) g/dL Albumin 4.7 (3.5-5.1) g/dL Lipase 79 (23-300) U/L Urine Color Light yellow (Yellow) Urine Appearance Clear (Clear) Urine pH 7.0 (5.0-8.0) Ur Specific [place] 1.015 (1.010-1.020) Urine Protein 2+ H (Negative) Urine Glucose (UA) Negative (Negative) Urine Ketones Negative (Negative) Ur Blood (Man) 2+ H (Negative) Urine Nitrate Negative (Negative) Urine Bilirubin Negative (Negative) Urine Urobilinogen 0.2 (0.2-1.0) mg/dL Leukocyte Esterase Rfl 1+ H (Negative) FLORI/UL Urine RBC 6-10 H (0-2) /hpf Urine WBC 0-3 (0-3) /hpf Ur Squamous Epith Cells Occasional (Few) /hpf Urine Test Negative Imaging Data Attestation: I personally reviewed and interpreted this imaging study as follows: Radiologist's impression: CT scan of the abdomen and pelvis shows Right-sided hydronephrosis and hydroureter although there is no obstructing calcified calculus identified. Findings may relate to a recently passed calculus however the differential includes an obstructing noncalcified calculus or stricture. Correlate with urinalysis. Follow-up is recommended to assess resolution ECG Data EKG #1: Attestation: I personally reviewed and interpreted this ECG as follows: ECG completion date: 04/03/25 ECG completion time: 18:38 EKG Interpretation: normal rate, sinus rhythm, no ectopy, no ST changes, normal QRS, normal QT, NL axis and no acute changes Discharge Plan Discharge Clinical Impression: Hydronephrosis of right kidney Patient Disposition: Acute Care Hospital Condition: Stable Patient Language: Divehi Prescriptions: No Action cyclobenzaprine 10 mg tablet 10 mg PO TID PRN (Reason: Back Pain) gabapentin 600 mg tablet 600 mg PO QID Rx Instructions: as prescribed diclofenac sodium 75 mg tablet,delayed release (DR/EC) 75 mg PO BID escitalopram oxalate 20 mg tablet 20 mg PO DAILY Follow-up/Referrals: Rizwana,SILVIO Simon [Primary Care Provider] Time of Disposition: 21:11
--- NOTE | 2025-04-03 18:30 | ECG_ITS ---
Test Date: 2025-04-03 18:49:18 Measurements Intervals [place] Rate: 83 P: 57 IL: 135 QRS: 34 QRSD: 94 T: 35 QT: 323 QTc: 381 Interpretive Statements SINUS RHYTHM POSSIBLE LEFT ATRIAL ENLARGEMENT [-0.1mV P-WAVE IN V1/V2] No previous ECG available for comparison Electronically Signed On 04-03-2025 21:13:25 [employer] by Samantha Jimenez M.D.
[2025-04-03] MEDS: KETOROLAC (*BKC) 60 MG/2 ML VIAL IM (18:35)
--- OUTSIDE RECORDS SUMMARY | 2025-04-03 18:43 | XMS_ITS | Clinical Summary ---
Author Organization [facility] Address [address] [place] [id number] Care Team Providers Care Physician Relations Representative Name Role Phone Unavailable Primary Care Provider [...] HPV 2008 Mammogram Screening 2018 COVID-19 Vaccine (2024-2 6 season) 2025 Influenza Adult (#1) 2025 Hepatitis A Vaccines Aged Out No long er eligible based on patient's age to complete this topic Meningococcal B Vaccine Aged Out No l onger eligible based on patient's age to complete this topic Meningococcal Vaccine Aged Out No dyan raphael eligible based on patient's age to complete this topic Pneumococcal Vaccine: Pediat rics (0 to 5 Years) and At-Risk Patients (6 to 49 Years) Aged Out No longer eligible b ased on patient's age to complete this topic RSV Immunizations Under 20 Months Aged Out No longer eligible based on patient's age to complete this topic
--- OUTSIDE RECORDS SUMMARY | 2025-04-03 18:43 | XMS_ITS | Data Portability ---
Author Organization [facility] Address [address] [place] [address] Care Team Providers Care Screen Cleaner Name Role Phone PRAMOD WAGONER Primary Care Provider AGGIE CARVALHO Deputy Treasurer Unavailable Assessment No assessment recorded. Plan of Treatment Reminders Order Date Submit Date Provider Last Modified By Organization Details Last Modified Time Details Appointments None recorded. Lab chlamydia trachomati s + neisseria gonorrhoea e + trichomona s vaginalis rRNA panel, TISHA+probe 2024 025 [facility], [address] [facility], [place], [address], 5 07:13:50 cytology report, thin prep, smear or scraping, cervical or vaginal 2023 024 [employer] [facility], [address] [facility], [address], [place], [address], 4 15:11:59 noninvasiv e colorectal cancer DNA + occult blood screening, QL, stool 2023 024 [facility], [address], [address], [place], [address], 4 10:42:24 CBC 2023 024 [employer] [facility], [address] [facility], [address], [place], [address], 4 06:19:22 CMP, serum or plasma 2023 024 [facility], [address] [facility] [facility] [address], [place], [address], 4 06:19:21 lipid panel, serum 2023 024 [facility], [address] [facility], [facility] [address], [place], [address], 4 06:19:19 HbA1c (hemoglobi n A1c), blood 2023 024 [email or web address] In-Office Order, Internal Use Only DO Not Attach Compendium DO Not Attach Compendium, Do Not Delete/merge, [id number] 11:11:05 Referral None recorded. Procedures None recorded. Surgeries None recorded. Imaging MAMMO, screening, bilateral 2023 024 [facility], [address] [place], [address], 5 14:57:12 XR, knee [address] (Registration ), [address] [place], [address], 4 14:00:03 Medication Orders methylpred nisolone acetate 80 mg/mL suspension for injection 2023 024 [email or web address] Not available 10:50:05 Patient TargetsNo targets recorded. Patient Instructions Encounter Date Encounter Id Patient Instructions Last Modified By Organization Details Last Modified Time 08/04/2023 [id number] A healthy lifestyle: care instructions [email or web address] Not available 08/04/2023 11:58:41 01/06/2024 [id number] dermatitis: care instructions [email or web address] Not available 01/06/2024 10:18:10 05/10/2024 [id number] A healthy lifestyle: care instructions [email or web address] Not available 05/10/2024 11:11:28 05/17/2024 [id number] A healthy lifestyle: care instructions [email or web address] Not available 05/17/2024 10:42:08 Quitting Tobacco : Care Instructions [email or web address] Not available 05/17/2024 10:42:08 Your women's health annual exam today was unremarkable. Continue to practice breast self awareness like we discussed. Come back to the office with any breast changes, nipple discharge, change to your menstrual cycle, or with complaints of unusual odorous discharge. Otherwise, come back in 1 year for your next well woman annual exam. Do NOT douche as it disturbs the natural balance of bacteria in the vagina and can cause infection. Avoid scented soaps or lotions. Use a basic unscented soap for only the outer skin around your vagina. Wear cotton underwear, avoid thongs, avoid spandex, leggings and wear panty liners daily. You can try probiotics. Use a condom with EVERY sexual encounter to minimize your risk for sexually transmitted infection and unplanned . You had your pap smear completed today. You should have a well woman exam each year. If your pap smear comes back normal and does not show any HPV ( human papilloma virus), you will not need another pap smear for 5 years. [email or web address] Not available 05/17/2024 10:42:27 12/13/2024 [id number] Quitting Tobacco : Care Instructions [email or web address] Not available 12/13/2024 14:12:02 A healthy lifestyle: care instructions [email or web address] Not available 12/13/2024 14:12:02 Make sure to eat breakfast Take ibuprofen 1 hour prior to appointment No unprotected intercourse for 2 weeks prior to IUD insertion Do NOT douche as it disturbs the natural balance of bacteria in the vagina and can cause infection. Avoid scented soaps or lotions. Use a basic unscented soap for only the outer skin around your vagina. Wear cotton underwear, avoid thongs, avoid spandex, leggings and wear panty liners daily. You can try probiotics. Use a condom with EVERY sexual encounter to minimize your risk for sexually transmitted infection and unplanned . [email or web address] Not available 12/13/2024 14:12:45 Reason for Referral None Reported. Results Created Date Observation Date Name Description Value Unit Range Abnormal Flag Note LastModifiedBy Organization Detail LastModifiedTime 05/10/20 24 05/10/2024 LIPID PANEL cholesterol, total 198 mg/dL 100-19 9 Not Available [address], [address], 05/11/2024 06:19:19 05/10/20 24 05/10/2024 LIPID PANEL triglyceride s 123 mg/dL 0-149 Not Available [address], [address], 05/11/2024 06:19:19 05/10/2005/10/2024 LIPID PANEL HDL cholesterol 67 mg/dL 40-999 Not Available [facility] & [address], [address], 05/11/2024 06:19:19 05/10/2005/10/2024 LIPID PANEL VLDL cholesterol robyn 25 mg/dL 5-40 Not Available [address], [address], 05/11/2024 06:19:19 05/10/20 24 05/10/2024 LIPID PANEL LDL chol calc (nih) 123 mg/dL 0-99 above high normal Not Available [address], [address], 05/11/2024 06:19:19 05/10/20 24 05/10/2024 COMP. METAB OLIC PANEL (14) glucose 112 mg/dL 70-99 above high normal Not Available [address], [address], 05/11/2024 06:19:20 05/10/20 24 05/10/2024 COMP. METAB OLIC PANEL (14) BUN 13 mg/dL 6-24 Not Available [facility] & [address], [address], 05/11/2024 06:19:20 05/10/20 24 05/10/2024 COMP. METAB OLIC PANEL (14) creatinine 0.86 mg/dL 0.76-1 .27 Not Available [address], [address], 05/11/2024 06:19:20 05/10/20 24 05/10/2024 COMP. METAB OLIC PANEL (14) eGFR 85 >=60 Units for eGFR value s are mL/mi n/1.7 3 The eGFR Calcu latio n has not been valid ated for patie nts under the age of 18. If test resul ts are displ ayed for a patie nt under the age of 18, disre migdalia that value . Not Available [address], [address], 05/11/2024 06:19:20 05/10/20 24 05/10/2024 COMP. METAB OLIC PANEL (14) BUN/creatini ne ratio 15 9-23 Not Available [address], [address], 05/11/2024 06:19:20 05/10/20 24 05/10/2024 COMP. METAB OLIC PANEL (14) sodium 141 mmol/ L 134-14 4 Not Available [address], [address], 05/11/2024 06:19:20 05/10/20 24 05/10/2024 COMP. METAB OLIC PANEL (14) potassium 4.7 mmol/ L 3.5-5. 2 Not Available [address], [address], 05/11/2024 06:19:20 05/10/20 24 05/10/2024 COMP. METAB OLIC PANEL (14) chloride 103 mmol/ L 96-106 Not Available [address], [address], 05/11/2024 06:19:20 05/10/20 05/10/2024 COMP. METAB OLIC PANEL (14) carbon dioxide, total 26 mmol/ L 20-29 Not Available [address], [address], 05/11/2024 06:19:20 05/10/20 24 05/10/2024 COMP. METAB OLIC PANEL (14) calcium 9.5 mg/dL 8.7-10 .2 Not Available [address], [address], 05/11/2024 06:19:20 05/10/20 24 05/10/2024 COMP. METAB OLIC PANEL (14) protein, total 7.3 g/dL 6.0-8. 5 Not Available [address], [address], 05/11/2024 06:19:20 05/10/20 24 05/10/2024 COMP. METAB OLIC PANEL (14) albumin 4.1 g/dL 3.9-4. 9 Not Available [address], [address], 05/11/2024 06:19:20 05/10/20 24 05/10/2024 COMP. METAB OLIC PANEL (14) globulin, total 3.2 g/dL 1.5-4. 5 Not Available [address], [address], 05/11/2024 06:19:20 05/10/20 24 05/10/2024 COMP. METAB OLIC PANEL (14) A/G ratio 1.0 1.2-2. 2 below low normal Not Available [address], [address], 05/11/2024 06:19:20 05/10/20 24 05/10/2024 COMP. METAB OLIC PANEL (14) bilirubin, total 0.3 mg/dL 0.0-1. 2 Not Available [address], [address], 05/11/2024 06:19:20 05/10/20 24 05/10/2024 COMP. METAB OLIC PANEL (14) alkaline phosphatase 82 IU/L 44-121 Not Available [address], [address], 05/11/2024 06:19:20 05/10/20 24 05/10/2024 COMP. METAB OLIC PANEL (14) AST (SGOT) 15 IU/L 0-40 Not Available [address], [address], 05/11/2024 06:19:20 05/10/20 24 05/10/2024 COMP. METAB OLIC PANEL (14) ALT (SGPT) 14 IU/L 0-32 Not Available [address], [address], 05/11/2024 06:19:20 05/10/20 24 05/10/2024 CARDI OVASC ULAR REPOR T interpretati on Note Suppl michele al repor t is avail able. Not Available [address], [address], 05/11/2024 06:19:22 05/10/20 24 05/10/2024 CARDI OVASC ULAR REPOR T pdf . Not Available [address], [address], 05/11/2024 06:19:22 05/10/20 24 05/10/2024 CBC, PLATE LET, NO DIFFE RENTI AL WBC 7.3 x10e3 /uL 3.4-10 .8 Not Available [address], [address], 05/11/2024 06:19:22 05/10/2005/10/2024 CBC, PLATE LET, NO DIFFE RENTI AL RBC 4.71 x10e6 /uL 3.77-5 .28 Not Available [address], [address], 05/11/2024 06:19:22 05/10/2005/10/2024 CBC, PLATE LET, NO DIFFE RENTI AL hemoglobin 13.6 g/dL 11.1-1 5.9 Not Available [address], [address], 05/11/2024 06:19:22 05/10/2005/10/2024 CBC, PLATE LET, NO DIFFE RENTI AL hematocrit 42.8 % 34.0-4 6.6 Not Available [address], [address], 05/11/2024 06:19:22 05/10/2005/10/2024 CBC, PLATE LET, NO DIFFE RENTI AL MCV 91 fL 79-97 Not Available [address], [address], 05/11/2024 06:19:22 05/10/2005/10/2024 CBC, PLATE LET, NO DIFFE RENTI AL MCH 28.9 pg 26.6-3 3.0 Not Available [address], [address], 05/11/2024 06:19:22 05/10/2005/10/2024 CBC, PLATE LET, NO DIFFE RENTI AL MCHC 31.8 g/dL 31.5-3 5.7 Not Available [address], [address], 05/11/2024 06:19:22 05/10/20 24 05/10/2024 CBC, PLATE LET, NO DIFFE RENTI AL RDW 13.3 % 11.5-1 4.5 Not Available [address], [address], 05/11/2024 06:19:22 05/10/20 24 05/10/2024 CBC, PLATE LET, NO DIFFE RENTI AL platelets 301 x10e3 /uL 150-45 0 Mean Plate let Volum e 10.2 fL 8.9-1 2.7 N Not Available [address], [address], 05/11/2024 06:19:22 05/10/20 24 05/10/2024 CBC, PLATE LET, NO DIFFE RENTI AL NRBC 0 % 0-0 Not Available [address], [address], 05/11/2024 06:19:22 05/10/20 24 05/10/2024 HbA1c (hemo globi n A1c), blood HbA1c 5.3 Not Available In-Office Order Internal Use Only DO Not Attach Compendium DO Not Attach Compendium, Do Not Delete/merge, [id number] 05/10/2024 08:39:43 05/17/20 24 05/18/2024 IGP, APTIM A HPV, RFX 16/18 ,45 HPV aptima NEGATI VE negati ve This nucle ic acid ampli ficat ion test detec ts fourt een high- risk HPV types (16,1 8,31, 33,35 ,39,4 5,51, 52,56 ,58,5 9,66, 68) witho ut diffe renti ation . Not Available [facility] ([facility]) [address], [place], [place], [address], 05/22/2024 15:11:59 05/17/20 24 05/22/2024 IGP, APTIM A HPV, RFX 16/18 ,45 diagnosis: COMMEN T NEGAT VAL FOR INTRA EPITH ELIAL MITALI Steiner OR KAYODE ORTIZ . Not Available [facility] ([facility]) [address], [place], [place], [address], 05/22/2024 15:11:59 05/17/20 24 05/22/2024 IGP, APTIM A HPV, RFX 16/18 ,45 specimen adequacy: JIM Moore Satis facto ry for evalu ation . Endoc ervic al and/o r squam ous metap lasti c cells (endo cervi robyn compo nent) are prese nt. Not Available [facility] ([facility]) [address], [place], [place], [address], 05/22/2024 15:11:59 05/17/20 24 05/22/2024 IGP, APTIM A HPV, RFX 16/18 ,45 clinician provided ICD10: JIM Moore Z01.4 19 Not Available [facility] ([facility]) [address], [place], [place], [address], 05/22/2024 15:11:59 05/17/20 24 05/22/2024 IGP, APTIM A HPV, RFX 16/18 ,45 performed by: JIM steiner, Cytoanselmo aquino t (ASCP ) Not Available [facility] ([facility]) [address] [place], [address], 05/22/2024 15:11:59 05/17/20 24 05/22/2024 IGP, APTIM A HPV, RFX 16/18 ,45 . . Not Available [facility] ([facility]) [address] [place], [address], 05/22/2024 15:11:59 05/17/20 24 05/22/2024 IGP, APTIM A HPV, RFX 16/18 ,45 note: JIM Moore The Pap smear is a scree celso test jazmyne fox to aid in the detec tion of richard ligna nt and malig nant condi tions of the uteri ne cervi x. It is not a diagn ostic proce dure and shoul d not be used as the sole means of detec ting cervi robyn cance r. Both false -posi tive and false -nega tive repor ts do occur . Not Available [facility] ([facility]) [address] [place], [address], 05/22/2024 15:11:59 05/17/20 24 05/22/2024 IGP, APTIM A HPV, RFX 16/18 ,45 test methodology: COMMEN T This liqui d based ThinP rep(R ) pap test was jo fox with the use of an image guide monse sargent Not Available [facility] ([facility]) [address] [place], [address], 05/22/2024 15:11:59 05/17/20 24 05/22/2024 IGP, APTIM A HPV, RFX 16/18 ,45 HPV genotype reflex COMMEN T Crite piper not met, HPV Genot ype not perfo rmed. Not Available [facility] ([facility]) [address] [place], [address], 05/22/2024 15:11:59 12/14/19 25 12/15/2024 CT, NG, TRICH VAG BY TISHA chlamydia by TISHA NEGATI VE negati ve Not Available [facility] ([facility]) [address] [place], [address], 12/15/2024 07:13:50 12/14/19 25 12/15/2024 CT, NG, TRICH VAG BY TISHA gonococcus by TISHA NEGATI VE negati ve Not Available [facility] ([facility]) [address] [place], [address], 12/15/2024 07:13:50 12/14/19 25 12/15/2024 CT, NG, TRICH VAG BY TISHA trich vag by TISHA NEGATI VE negati ve Not Available [facility] ([facility]) [address], [place], [address], 12/15/2024 07:13:50 08/04/19 24 08/04/2023 XR, knee No observ ation record ed. [facility] [address] [place], [address], 02/18/2024 11:05:51 07/01/19 25 07/01/2024 MAMMO , scree celso, bilat eral No observ ation record ed. [facility] [address] [place], [address], 07/05/2024 14:01:16 07/01/19 25 07/01/2024 MAMMO , scree celso, bilat eral No observ ation record ed. [facility] [address] [place], [address], 07/01/2024 16:14:21 Result Notes None recorded. Problems No Known Problems Procedures Surgical History Date Name Laterality Status Provider Name and Address Organization Details Recorded Time 5 Date of Last Mammogram completed Jackie Gutierrez MA [facility] 12/13/2024 13:58:10 4 Date of Last Pap Smear completed Jackie Gutierrez MA [facility] 12/13/2024 13:57:12 2 Knee Surgery completed Hannah Mary MA [facility] 08/15/2022 15:33:35 Imaging Results None recorded. Procedure Notes None recorded. Medical Equipment None Reported. Allergies No known drug allergies Medications Name Sig Start Date Stop Date Status Note LastModified by Organization Details LastModified Time cyclobenzap rine 10 mg tablet TAKE ONE TABLET BY MOUTH THREE TIMES A DAY 2024 active Not Available Not Available Not Avai lable amoxicillin 500 mg capsule Take 1 capsule every 8 hours by oral route for 10 days. 03/01 completed Not Available Not Available Not Available gabapentin 600 mg tablet TAKE ONE TABLET BY MOUTH FOUR TIMES A DAY NEEDS APPT active Not Available Not Available No t Available Stool Softener 100 mg capsule 08/03 completed Not Available Not Available Not Available penicillin V potassium 500 mg tablet 03/01 completed Not Available Not Available Not Available amlodipine 5 mg tablet TAKE ONE TABLET BY MOUTH DAILY, NEEDS APPOINTME NT BEFORE ANY MORE REFILLS active Not Available Not Available No t Available ciprofloxac in 500 mg tablet 08/22 completed Not Available Not Available Not Available aspirin 81 mg tablet,pollo yed release 08/03 completed Not Available Not Available Not Available doxycycline monohydrate 100 mg tablet 08/22 completed Not Available Not Available Not Available tramadol 50 mg tablet TAKE ONE TABLET BY MOUTH EVERY EIGHT HOURS NEEDED FOR PAIN 08/03 completed Not Available Not Available Not Available methylpredn isolone acetate 80 mg/mL suspension for injection Take 1 mL by injection route. 05/10 completed Not Available Not Available Not Available tamsulosin 0.4 mg capsule 08/03 completed Not Available Not Available Not Available hydrocodone 7.5 mg-acetamin ophen 325 mg tablet 01/26 completed Not Available Not Available Not Available cephalexin 500 mg capsule Take 1 capsule every 8 hours by oral route for 10 days. 01/26 completed Not Available Not Available Not Available dexamethaso ne 4 mg tablet 05/23 completed Not Available Not Available Not Available prednisone 50 mg tablet 08/07 completed Not Available Not Available Not Available lidocaine 5 % topical patch 08/22 completed Not Available Not Available Not Available gabapentin 300 mg capsule TAKE ONE CAPSULE BY MOUTH THREE TIMES A DAY 08/01 completed Not Available Not Available Not Available diclofenac sodium 75 mg tablet,pollo yed release TAKE ONE TABLET BY MOUTH TWICE A DAY 2023 active Not Available Not Available Not Avai lable polyethylen e glycol 3350 17 gram/dose oral powder 08/03 completed Not Available Not Available Not Available methylpredn isolone 4 mg tablets in a dose pack Take 1 dose pk by oral route as directed. 08/03 completed Not Available Not Available Not Available oxybutynin chloride 5 mg tablet 08/03 completed Not Available Not Available Not Available oxycodone 5 mg tablet 08/22 completed Not Available Not Available Not Available escitalopra m 20 mg tablet TAKE ONE TABLET BY MOUTH DAILY ( needs appt) 2023 active Not Available Not Available Not Avai lable cyclobenzap rine 5 mg tablet 08/15 completed Not Available Not Available Not Available Pain Relief Extra Strength (acetaminop hen) 500 mg tablet 05/10 completed Not Available Not Available Not Available tramadol 08/22 completed Not Available Not Available Not Available Ortho-Cycle n (28) 07/02 completed Not Available Not Available Not Available Tri-Lo-Spri ntec 0.18 mg/0.215 mg/0.25 mg-0.025 mg tablet TAKE ONE TABLET BY MOUTH DAILY 08/03 completed Not Available Not Available Not Available Stimulant Laxative Plus 8.6 mg-50 mg tablet 08/03 completed Not Available Not Available Not Available Vitals Date Recorded Body height Body mass index (BMI) Body weight Oxygen saturation Oxygen saturation in Arterial blood by Pulse oximetry Heart rate Systolic And Diastolic Provider Name and Address Organization Details Last Updated DateTime 4 166.37 cm 33.6 kg/m2 26904.4 4 g 98 % 98 % 76 /min 136/94 mm[Hg] Cate Enriquez MA [facility] 4 11:41:26 Date Recorded Body height Body mass index (BMI) Body weight Respiratory rate Heart rate Systolic And Diastolic Provider Name and Address Organization Details Last Updated DateTime 5 166.37 cm 30.3 kg/m2 43836.5 9 g 16 /min 97 /min 132/84 mm[Hg] Jackie Gutierrez MA [facility] 5 14:01:41 Date Recorded Body height Body mass index (BMI) Body weight Oxygen saturation Oxygen saturation in Arterial blood by Pulse oximetry Heart rate Systolic And Diastolic Provider Name and Address Organization Details Last Updated DateTime 4 166.37 cm 32 kg/m2 24301.5 1 g 99 % 99 % 96 /min 124/86 mm[Hg] Any Barajas MA [facility] 4 10:55:20 Date Recorded Body height Body mass index (BMI) Body weight Heart rate Systolic And Diastolic Provider Name and Address Organization Details Last Updated DateTime 05/17/2024 166.37 cm 33.1 kg/m2 11743.66 g 99 /min 124/84 mm[Hg] Cate Enriquez MA [facility] 05/17/2024 10:31:44 Social History Question Answer Notes LastModified by Organizat ion Details LastModified Time Tobacco Smoking Status Current Every Day Smoker Kami Ghosh MA null, [facility] 09/10/2016 16:17:24 What Is Your Level Of Caffeine Consumption? Heavy Information not available 01/26/2021 How Much Tobacco Do You Chew? None Information not available 03/01/2020 In The 14 Days Before Symptom Onset, Have You Had Close Contact With A Laboratory-confir med COVID-19 While That Case Was Ill? No Information not available 08/07/2020 In The 14 Days Before Symptom Onset, Have You Had Close Contact With A Person Who Is Under Investigation For COVID-19 While That Person Was Ill? No Information not available 08/07/2020 Have You Been To An Area Known To Be High Risk For COVID-19? No Information not available 08/07/2020 What Type Of Diet Are You Following? REGULAR Information not available 08/07/2020 Which Illicit Or Recreational Drugs Have You Used? None [email or web address] Information not available 11/19/2018 Live Alone Or With Others? With Others Information not available 03/01/2020 What Was The Date Of Your Most Recent Tobacco Screening? 12/13/2024 Information not available 12/13/2024 What Is Your Relationship Status? Single Information not available 08/07/2020 Do You Use Your Seat Belt Or Car Seat Routinely? Yes Information not available 01/26/2021 Do You Have Smoke And Carbon Monoxide Detectors In Your Home? Yes Information not available 01/26/2021 Are You Passively Exposed To Smoke? Yes Information no t available 01/26/2021 How Much Tobacco Do You Smoke? 0.25 PPD 5 Cigs/day [email or web address] Information not available 06/20/2021 Do You Use Sunscreen Routinely? Yes Information not available 01/26/2021 Has Tobacco Cessation Counseling Been Provided? Yes Information not available 09/08/2018 On What Date Was Tobacco Cessation Counseling Provided? 12/13/2024 Information not available 12/13/2024 How Many Years Have You Smoked Tobacco? 20 Information not available 09/10/2016 Sex: Female Functional Status Question Answer Note LastModified by Organizat ion Details LastModified Time Do you use any illicit or recreational drugs? No Information not available 01/26/2021 Do you or have you ever used any other forms of tobacco or nicotine? No Information not available 01/26/2021 What is your level of alcohol consumption? Occasional Information not available 01/26/2021 Do you or have you ever used smokeless tobacco? Never used smokeless tobacco Information not available 03/01/2020 Are you currently employed? Yes Information not available 08/15/2022 Are you able to care for yourself independently? 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 Never used electronic cigarettes Information not available 03/01/2020 What is your exercise level? Occasional Information not available 01/26/2021 Mental Status Question Answer Note LastModified by Organization D etails LastModified Time Do you feel stressed (tense, restless, nervous, or anxious, or unable to sleep at night)? [id number] Information not available 08/15/2022 Family History Relationship Description Onset Age of this Age Resolved Age Notes LastModified by Organization Details LastModified Time Sister Alcoholism Not avai lable 09/10/2016 16:16:51 Mother Depressive disorder Not available 08/31 16:17:02 Mother Diabetes mellitus Not available 08/31 16:17:17 Medical History Condition Response Coronary Artery Disease N Other N High Blood Pressure Y Atrial Fibrillation N Kidney or Bladder Problems Y Thyroid Problems N Blood Clots N COPD N Depression Y GI Problems N Skin Problems N Eating Disorder N Anemia N Heart Attack ([place]) N Anxiety Disorder N Diabetes N Muscle, Joint, or Bone Problems N Seizures/Epilepsy N Acid Reflux (GERD) N Cancer N Stroke N Asthma N Allergies Y ADHD N Substance Abuse N High Cholesterol N Hepatitis N Liver Disease N Schizophrenia N Headaches N Heart Failure N Osteoporosis N Gynecological History Statement/Question Response Abnormal Pap No Date of Last Mammogram 07/01/2024 Date of LMP 12/05/2024 On BCP's at Conception? N Duration of Flow (days) 5 Current Control Method None Age at Menarche 9 Age at First Child 20 Menses Monthly Y Date of Last Pap Smear 05/17/2024 LMP Definite Obstetrics History GPAL:G 3 P 2 0 1 2 Type Value Full Term 2 Spontaneous 1 Living 2 Total 3 Immunizations Vaccine Type Date Status Note Provider Nam e and Address Organization Details Recorded Time Tdap 0 completed CATRACHITA LARES NP Attn: Accounting,[address] [place], [place], [address] [place] [address], [facility] 05/17/2024 11:39:58 MMR 0 completed CATRACHITA LARES NP Attn: Accounting,[address] [place], [place], [address] [place] [address], [facility] 05/17/2024 11:39:58 MMR 0 completed CATRACHITA LARES NP Attn: Accounting,[address] [place], [address] [place] [address], [place] [facility] 05/17/2024 11:39:58 DTP 0 completed CATRACHITA LARES NP Attn: Accounting,[address] [place], [address] [place] [address], [facility] 05/17/2024 11:39:58 DTP 0 completed CATRACHITA LARES NP Attn: Accounting,20 [address] [place], [address] [place] [address], [facility] 05/17/2024 11:39:58 DTP 2 completed CATRACHITA LARES NP Attn: Accounting,[address] [facility], [place], [address], [place] [facility] 05/17/2024 11:39:58 DTP 9 completed CATRACHITA LARES NP Attn: Accounting,[address] [facility], [place], [address], [place] [facility] 05/17/2024 11:39:58 OPV, trivalent 0 completed CATRACHITA LARES NP Attn: Accounting,[address] [facility], [place], [address], [place] [facility] 05/17/2024 11:39:58 OPV, trivalent 0 completed CATRACHITA LARES NP Attn: Accounting,[address] [facility], [place], [address], [place] [facility] 05/17/2024 11:39:58 OPV, trivalent 2 completed CATRACHITA LARES NP Attn: Accounting,[address] [facility], [place], [place], [address] [place] [address], [place] [facility] 05/17/2024 11:39:58 OPV, trivalent 6 completed CATRACHITA LARES NP Attn: Accounting,20 [address] [facility], [place], [place], [address] [place] [address], [place] [facility] 05/17/2024 11:39:58 OPV, trivalent 9 completed CATRACHITA LARES NP Attn: Accounting,[address] [facility], [place], [place], [address] [place] [address], [place] [facility] 05/17/2024 11:39:58 Td (adult), 2 Lf tetanus toxoid, preservative free, adsorbed 6 completed CATRACHITA LARES NP Attn: Accounting,[address] [facility], [place], [address], [place] [facility] 05/17/2024 11:39:58 Td (adult), 2 Lf tetanus toxoid, preservative free, adsorbed 6 completed CATRACHITA LARES NP Attn: Accounting,[address] [facility], [place], [address], [facility] 05/17/2024 11:39:58 Tdap 2 completed CATRACHITA LARES NP Attn: Accounting,[address] [facility], [place], [address], [facility] 05/17/2024 11:40:12 Past Encounters Encounter ID Performer Location Encounter Start Date Encounter Closed Date Diagnosis/Indication Diagnosis SNOMED-CT Code Diagnosis ICD10 Code Diagnosis IMO Codes Diagnosis Note [id number] Pramod Wagoner PA-C [facility] [address] [place] [address] 09/10/2016 15:54:26 09/10/2016 17:43:47 Lumbar radiculopathy 907176275 M54.16 Essential hypertension 47039944 I10 [id number] Pramod Wagoner PA-C [facility] [address] [place] [address] 09/17/2016 11:07:12 09/17/2016 14:48:26 Lumbar radiculopathy 564435264 M54.16 Hypertriglyceridemia 302 316320 E78.1 [id number] Da Hale MD [facility] [address] [place] [address] 10/18/2016 10:54:44 10/18/2016 12:09:39 Body mass index 30+ - obesity 542014184 Z68.39 Lumbar radiculopathy 128 333095 M54.16 Essential hypertension 74290454 I10 [id number] Da Hale MD [facility] [address] [place] [address] 02/11/2017 11:12:49 02/11/2017 12:22:57 Chronic depression 344572617 F34.1 Essential hypertension 17826074 I10 Lumbar radiculopathy 128 642872 M54.16 [id number] Pramod Wagoner PA-C [facility] [address] [place] [address] 02/28/2017 10:57:47 02/28/2017 12:06:44 Chronic depression 273936369 F34.1 [id number] Da Hale MD [facility] [address] [place] [address] 03/18/2017 10:25:14 03/18/2017 13:31:07 Essential hypertension 86098533 I10 Chronic depression 99321 0009 F34.1 [id number] Aggie Carvalho [facility] [address] [place] [address] 07/02/2017 09:36:08 07/02/2017 14:56:42 Contraception care management 834183356 Z30.9 [id number] Da Hale MD [facility] [address] [place] [address] 07/03/2017 14:54:18 07/03/2017 16:06:05 Chronic depression 842431826 F34.1 Chronic back pain 717439 002 G89.29 [id number] Aggie Carvalho [facility] [address] [place] [address] 07/16/2017 08:59:30 07/16/2017 15:16:19 Gynecologic examination 22932538 Z01.419 Contracept ion care management 501630694 Z30.9 [id number] Da Hale MD [facility] [address] [place] [address] 08/01/2017 12:00:37 08/01/2017 14:43:16 Lumbar radiculopathy 696103210 M54.16 Bilateral carpal tunnel syndrome 4340171478 2542201 G56.03 Chronic back pain 738529 002 G89.29 Essential hypertension 44175951 I10 Chronic depression 46689 0009 F34.1 [id number] Da Hale MD [facility] [address] [place] [address] 09/03/2017 11:05:17 09/03/2017 14:03:31 Lumbar radiculopathy 330352387 M54.16 [id number] Da Hale MD [facility] [address] [place] [address] 10/09/2017 14:42:57 10/09/2017 15:49:27 Lumbar radiculopathy 922612005 M54.16 [id number] Da Hael MD [facility] [address] [place] [address] 12/11/2017 10:39:37 12/11/2017 11:45:42 Lumbar radiculopathy 376526104 M54.16 [id number] Pramod Wagoner PA-C [facility] [address] [place] [address] 06/04/2018 15:33:17 06/04/2018 16:45:32 Acute maxillary sinusitis 29109260 J01.00 [id number] Pramod Wagoner PA-C [facility] [address] [place] [address] 09/08/2018 14:17:29 09/08/2018 16:08:13 Essential hypertension 00920542 I10 Fatigue 81073219 R53.83 Acute low back pain 2788 15947 M54.5 [id number] Pramod Wagoner PA-C [facility] [address] [place] [address] 09/21/2018 11:51:48 09/21/2018 12:32:44 Essential hypertension 74193145 I10 Hyperglycemia 49356454 R 73.09 Primary hypertriglyceridemia 219103794 E78.1 [id number] Pramod Wagoner PA-C [facility] [address] [place] [address] 11/03/2018 10:28:03 11/04/2018 12:36:57 Lumbosacral radiculopathy 6851891 M54.17 Essential hypertension 25275018 I10 [id number] Pramod Wagoner PA-C [facility] [address] [place] [address] 11/19/2018 10:28:13 11/19/2018 11:30:41 Acute bacterial pharyngitis 579102976 J02.0 [id number] Pramod Wagoner PA-C [facility] [address] [place] [address] 06/24/2019 11:06:19 06/24/2019 12:10:03 Laceration of finger 976127981 S61.215A [id number] DENISE Vallecillo [facility] [address] [place] [address] 06/29/2019 13:50:50 06/29/2019 14:39:59 Essential hypertension 95726120 I10 Hyperglycemia 96722289 R 73.09 [id number] Pramod Wagoner PA-C [facility] [address] [place] [address] 02/04/2020 09:37:42 02/10/2020 20:01:26 Lumbar radiculopathy 262114405 M54.16 Uses oral contraception 0751196 Z30.41 [id number] Da Hale MD [facility] [address] [place] [address] 03/01/2020 09:39:46 03/01/2020 16:11:18 Lumbar radiculopathy 937730881 M54.16 [id number] Pramod Wagoner PA-C [facility] [address] [place] [address] 08/07/2020 09:40:21 08/09/2020 13:31:01 Upper respiratory infection 57088447 J00 [id number] Da Hale MD [facility] [address] [place] [address] 01/26/2021 10:01:24 01/26/2021 11:54:49 Suspected COVID-19 340028923 Z03.89 Viral syndrome 934696642 B34.9 [id number] Pramod Wagoner PA-C [facility] [address] [place] [address] 05/23/2021 11:43:51 05/23/2021 12:19:52 Calculus of kidney and ureter 618730670 N20.2 [id number] Pramod Wagoner PA-C [facility] [address] [place] [address] 06/20/2021 15:19:39 06/20/2021 16:05:45 Calculus of kidney and ureter 630320174 N20.2 [id number] Corbin Aleman MD [facility] [address] [address] 06/29/2021 11:15:18 06/29/2021 13:28:28 Ureteric stone 99155532 N20.1 [id number] Pramod Wagoner PA-C [facility] [address] [place] [address] 08/15/2022 15:06:13 08/21/2022 11:21:49 Essential hypertension 65360480 I10 Chronic depression 90448 0009 F34.1 Lumbar radiculopathy 128 353199 M54.16 Mixed hyperlipidemia 267 459119 E78.2 Overweight 686510573 E66 .3 Long-term drug therapy 037041398 Z79.634 [id number] Pramod Wagoner PA-C [facility] [address] [place] [address] 10/25/2022 10:17:45 10/29/2022 08:39:31 Contact dermatitis caused by urushiol from [facility] chalino 371677604 L23.7 Overweight 759377678 E66 .3 [id number] Pramod Wagoner PA-C [facility] [address] [place] [address] 08/04/2023 11:15:17 08/11/2023 14:00:03 Pain of right knee joint 9695735237 64009 M25.561 Overweight 737615071 E66 .3 [id number] Da Hale MD [facility] [address] [place] [address] 01/06/2024 09:59:49 01/07/2024 09:36:07 Contact dermatitis 81458284 L25.9 [id number] Da Hale MD [facility] [address] [place] [address] 05/10/2024 10:40:07 05/21/2024 15:10:07 Adult health examination 192817824 Z00.00 Essential hypertension 48092899 I10 Overweight 329562545 E66 .3 [id number] CATRACHITA LARES NP [facility] [address] [place] [address] 05/17/2024 10:23:44 05/20/2024 11:28:51 Gynecologic examination 60273881 Z01.419 Kinesiology Internship exam completedB reast and thyroid WNLDenies any family history of breast, ovarian, pancreatic , endometria l cancer 1. Pap+ HPV cotesting done; Last pap smear: 07/16/2017 NILM HRHPV Neg2. STI screening declined.3 . Pt's partner has vasectomy. 4. Discussed breast self awareness5 . Mammogram ordered per ACOG guidelines 6. Educated on STI reduction and prevention . Encouraged condom use.7. Discussed when to return to clinic for /SILK HANGER complaints . Screening mammography 24 419492 Z12.31 Never had mammogram done Contracept ion care management 711267208 Z30.9 Contracept val options were discussed. The patients partner has a vasectomy. Obesity 950081275 E66.9 Smoker 64332143 F17.200 Screening for malignant neoplasm of colon 876631990 Z12.11 No HX of colon cancer in family [id number] CATRACHITA LARES, SUZY [facility] [address] [facility] [place] [address] 12/13/2024 13:42:38 12/14/2024 15:49:40 Contraceptive use education 32523593 Z30.09 303181 Risks of hormonal control reviewed, patient was informed of risk including but not limited to thrombosis , embolism, pulmonary embolism, stroke, disability , sexual dysfunctio n & .Risk s of hormonal control reviewed,m enstrual bleeding or no bleeding, weight changes, breast tenderness and mood changes. Patient understand s these risk are increased with smoking. Pt understand s & accepts risks. Instructio ns/warning signs given. Safe sex counseling done. Contracept val options were discussed. Reviewed KRYSTINA, patch, ring, progestin only pill, DMPA, Nexplanon and IUD. Benefits, risks, side effects and danger signs discussed. The patient would like to use IUDThe patients partner has a vasectomy. Denies hx of uterine malformati ons, unexplaine d bleeding, PID or current infection. [facility] criteria 1 Venereal d isease screening 467612874 Z11.3 703616 STI screening per patient request. 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 Zaira Grubbs 08/01/2023 2 *SELF PAY* Amee Grubbs 03/23/2025 1 [place] Zaira Grubbs [id number] Zaira Grubbs 03/23/2025 1 [facility] PRIOR TO 12/31/2024 (MEDICAID REPLACEMENT - HMO) [id number] Zaira Grubbs [id number] Zaira Grubbs 03/23/2025 1 [place] [facility] Zaira Grubbs [id number] Zaira Grubbs 09/17/2016 1 *SELF PAY* Amee Grubbs 01/12/2017 PAYMENT PLAN Zaira Grubbs 03/23/2025 1 [facility] (MEDICAID HMO) [id number] Zaira Grubbs [id number] Zaira Grubbs Notes Date Note Type Note Provider Name and Address Organization Details Recorded Time 08/04/2023 text/html ROS as noted in the HPI fell at work...cleaning up a grease mess and slid and fell to all fours...turned heard a pop and had instant pain...rt knee...hx of a shattered knee cap 2 years ago... 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 Reports regular menstrual cycles with 7 days of moderate flow using 6-8 pads/tampon on their heaviest day. Denies any /SILK HANGER complaints. Denies any breast changes/pain, fatigue/cold intolerance/hair loss/dry skin. Denies dyspareunia, pelvic pressure or bowel movement changes.Denies SOB/chest pain/dizziness. Denies any fever or chills. Denies any family history of breast, ovarian, endometrial or pancreatic cancer. LMP: 05/09/2024Last pap smear: 07/16/2017 NILM HRHPV NegPap due: TodayLast Mammogram: never had oneLast Cologuard: Never had onePatient is sexually active with a male partner. Patient has had 1 male partner in the past 2 years.Current contraception: Partner has vasectomyPatient is happy with methodDeclines STI testing today. CATRACHITA LARES NP Attn: Accounting,[address] [place], [address], [facility] 05/17/2024 11:40:55 12/13/2024 text/html ROS as noted in the HPI Zaira pompa 44 yo presents today to initiate contraception. Patient is currently using condoms and would like to have IUD inserted.LMP: 12/05/2024Unprotected intercourse in the past 2 weeks: NoLast pap smear: 05/17/2024 NILM HRHPV NegLast STI testing: will do today Denies any hx of blood clots, stroke, migraines with/without aura, hypertension, lupus, cardiovascular disease, liver disease or cancers.Denies any /SILK HANGER complaintsPatient is currently sexually active with 1 male partner and has had 1 male partner in the past year. Partner does have vasectomy. CATRACHITA LARES NP Attn: Accounting,[address] [place], [address], [facility] 12/13/2024 22:50:15 OBGyn Episode Ob Episode Information Episode Created Date Number of Fetuses Patient Bloodtype Patient rh Status Prepregnancy Weight lbs Domestic Partner Domestic Partner Phone Father Name Bottling Room Worker Status 07/02/19 18 1 CLOSED Fetus Data First Name Last Name Admitted to NICU Weight (g) Sex Living Outcome Pediatric Complications Fetus ID Race Codes Race Delivery Type 3713.55 7704 F Full Term [id number] Vaginal Zion Calculation Initial Zion Date Initial Exam Date Initial Exam Provider Initial Ultrasound Date Last Menstrual Period Date Ultra Sound Weeks Gestation 0 Eighteen To Twenty Week Zion Update Ultra Sound Date Fundal Height At Umbil Quickening Date Ultra Sound Latest Weeks Gestation Final Zion Confirmed By Final Zion Confirmed Date Final Zion Date Ultra Sound Latest Days Gestation 0 0 Menstrual History Last Menstrual Date Menses Monthly On Bcp Conception Prior Menses Frequency Hcg Plus Date Menarche Onset Age Delivery Information Delivery Date Delivery Type Labor Anesthesia Weeks Gestation Incision Type Labor Labor Length Hrs Delivered By Post Complications Tubal Sterilization Discharge Date Comments 1 General 40 false 25 Discharge Information Feeding Method Contraceptive Method Maternal HG B and HCT Levels Ob Episode Information Episode Created Date Number of Fetuses Patient Bloodtype Patient rh Status Prepregnancy Weight lbs Domestic Partner Domestic Partner Phone Father Name Bottling Room Worker Status 07/02/19 18 1 CLOSED Fetus Data First Name Last Name Admitted to NICU Weight (g) Sex Living Outcome Pediatric Complications Fetus ID Race Codes Race Delivery Type 3826.95 5704 M Full Term [id number] Vaginal Zion Calculation Initial Zion Date Initial Exam Date Initial Exam Provider Initial Ultrasound Date Last Menstrual Period Date Ultra Sound Weeks Gestation 0 Eighteen To Twenty Week Zion Update Ultra Sound Date Fundal Height At Umbil Quickening Date Ultra Sound Latest Weeks Gestation Final Zion Confirmed By Final Zion Confirmed Date Final Zion Date Ultra Sound Latest Days Gestation 0 0 Menstrual History Last Menstrual Date Menses Monthly On Bcp Conception Prior Menses Frequency Hcg Plus Date Menarche Onset Age Delivery Information Delivery Date Delivery Type Labor Anesthesia Weeks Gestation Incision Type Labor Labor Length Hrs Delivered By Post Complications Tubal Sterilization Discharge Date Comments 2 General 40 15 Discharge Information Feeding Method Contraceptive Method Maternal HG B and HCT Levels
--- OUTSIDE RECORDS SUMMARY | 2025-04-03 18:43 | XMS_ITS | Clinical Summary ---
Author Organization [facility] [employer] Address [address] [place] [address] Care Team Providers Care Accelerator Operator Name Role Phone Simon Wagoner Primary Care Provider [phone] Source Comments [facility] [employer],non-owned Affiliates and Associated Physician Practices is amultiple site organization consisting of ambulatory clinics and hospital sitesin [place], [place], [place] and [place]. This disclosure is being madepursuant to the Care Everywhere program and may not contain all information available regarding this patient. Last updated 18.[facility] [employer] Allergies No known active allergies Medications * Be aware that medications may not be up to date on this document. Alwaysverify current medications with the patient. amLODIPine (NORVASC) 5 MG tablet 02/10/2020 Active [...] drink = 0.6 oz pur e alcohol) Comments Unknown Sex and Gender Information Value Date Recorded Sex Assigned at Not on file Legal Sex Female 11:22 AM CDT Gender Identity Not on file Sexual Orientation Not on file Last Filed Vital Signs Vital Sign Reading Time Taken Comments Blood Pressure 144/83 03/15/2020 9:12 AM CDT Pulse 90 03/15/2020 9:12 AM CDT Temperature 36.5 C (97.7 F) 03/15/2020 9:12 AM CDT Respiratory Rate - - Oxygen Saturation 100% 03/15/2020 9:12 AM CDT Inhaled Oxygen Concentration - - Weight 99.3 kg (219 lb) 03/15/2020 9:12 AM CDT Height 166.4 cm (5' 5.5) 03/15/2020 9:12 AM CDT Body Mass Index [...] SCREENING 1978 LIPID TESTING 1978 MAMMOGRAM 1978 HIV SCREENING 1993 HEPATITIS C SCREENING 11/19/1996 DTAP/TDAP/TD VACCINES (1 - Tdap) 1997 HEPATITIS B VACCINE (1 of 3 - 19+ 3-dose series) 1997 PNEUMOCOCCAL VACCINE (1 of 2 - PCV) 1997 SCREENING FOR DIABETES 03/15/2020 DEPRESSION SCREENING 06/02/2024 COVID-19 VACCINE (1 - 2023-2 5 season) 2025 INFLUENZA VACCINE (#1) 2025 ZOSTER VACCINE (1 of 2) 2028 HIB VACCINE Aged Out No longer eligi ble based on patient's age to complete this topic HPV VACCINE Aged Out No longer eligi ble based on patient's age to complete this topic MENINGOCOCCAL (Group B) VACC INE SHARED DECISION-MAKING Aged Out No longer eligibl e based on patient's age to complete this topic MENINGOCOCCAL GROUPS A/C/Y/W VACCINE Aged Out No longer eligible b ased on patient's age to complete this topic Insurance [facility] Care Teams Accelerator Operator Relationship Specialty Start Date End Date Simon Wagoner PA [address] [place] [address] PCP - General 11/25/18
--- OUTSIDE RECORDS SUMMARY | 2025-04-03 18:43 | XMS_ITS | Clinical Summary ---
Author Organization [facility] Address [address] [place] [address] Care Team Providers Care Ice Skater Name Role Phone Halle Howell MD Unavailable [phone] Simon Wagoner Primary Care Provider [phone] Allergies No known active allergies Medications Kqq-Xe-Zfgftequ 0.18/0.215/0.25 mg-25 mcg per tabletIndications : Contraception [...] (07/22/2021): Added automatically from request for surgery [id number] Immunizations Immunization Administration Dates Next Due DTP 09/22/1981,09/16/1979,06/09/1979 ,02/04/1979 [...] Date Smoking Tobacco: Every Day Cigarettes 0.3 32.8 Started: 1992 Smokeless Tobacco: Never Comments:Smoking History [...] on file Legal Sex Female 11:54 PM CONVEYOR BELT OPERATOR Gender Identity Not on file Sexual Orientation Not on file Last Filed Vital Signs Vital Sign Reading Time Taken Comments Blood Pressure 122/74 07/20/2023 9:05 AM CONVEYOR BELT OPERATOR Pulse 89 07/20/2023 9:05 AM CONVEYOR BELT OPERATOR Temperature 36.8 C (98.3 F) 07/20/2023 9:05 AM CONVEYOR BELT OPERATOR Respiratory Rate 18 07/20/2023 9:05 AM CONVEYOR BELT OPERATOR Oxygen Saturation 99% 07/20/2023 9:05 AM CONVEYOR BELT OPERATOR Inhaled Oxygen Concentration - - Weight 93 kg (205 lb) 07/20/2023 9:05 AM CONVEYOR BELT OPERATOR Height 165.1 cm (5' 5) 07/20/2023 9:05 AM CONVEYOR BELT OPERATOR Body Mass Index 34.11 07/20/2023 9:05 AM CONVEYOR BELT OPERATOR Plan of Treatment Health Maintenance Due Date Last Done Comments Breast Cancer Screening-Mammogram 1978 Cervical Cancer Screening 1978 Colon Cancer Screening-Colonoscopy 1978 Depression Screening 1978 Hepatitis C Screening 1978 Hepatitis B Screening 1996 Regular Well Visit/Exam 18-64 1996 Pneumococcal vaccine <65 (1 of 2 - PCV) 1997 Influenza Vaccine (#1) 2025 DTaP/Tdap/Td Vaccine (7 - Td or Tdap) 07/22/2031 07/22/2021, 06/21/2019, 02/06/1996, Additional history exists HPV Vaccines Aged Out No longer eligi ble based on patient's age to complete this topic Medical Devices Implanted Type Area Electrocardiograph Technician Device Identifier Shelf Expiration Date Model / Serial / Lot Synthes 202.900 2.7mm 5mm 40mm 2.5mm Self Tap Stardrive Cortex T8 Screw Bone - [id number] Implanted:Qty: 1 on 07/23/2021 by Delon Maya MD at [facility] Right: Patella Synthes I 202.900 / / Synthes 201.380.97 2mm 36mm Self Tap Self Retain Stardrive Cortex T6 Screw Bone - [id number] Implanted:Qty: 1 on 07/23/2021 by Delon Maya MD at [facility] Right: Patella Synthes I 201.380.97 / / Synthes 02.211.224lcp 5x12 Hole Variable Angle Lock Mesh Forefoot Midfoot Plate - [id number] Implanted:Qty: 1 on 07/23/2021 by Delon Maya MD at [facility] Right: Patella Synthes I 02.224 / / Synthes 202.894 2.7mm 5mm 34mm 2.5mm Self Tap Stardrive Cortical T8 Screw Bone - [id number] Implanted:Qty: 2 on 07/23/2021 by Delon Maya MD at [facility] Right: Patella Synthes I 202.894 / / Synthes 202.963 2.7mm 5mm 44mm 2.5mm Self Tap Stardrive Cortical T8 Screw Bone - [id number] Implanted:Qty: 1 on 07/23/2021 by Delon Maya MD at [facility] Right: Patella Synthes I 202.963 / / Synthes .014 2.7mm 14mm Self Tap Lock Variable Angle Stardrive T8 Screw Bone - [id number] Implanted:Qty: 2 on 07/23/2021 by Delon Maya MD at [facility] Right: Patella Synthes I ..014 / / Synthes .018 2.7mm 18mm Self Tap Lock Variable Angle Stardrive T8 Screw Bone - [id number] Implanted:Qty: 2 on 07/23/2021 by Delon Maya MD at [facility] Right: Patella Synthes I ..018 / / Synthes .026 2.7mm 26mm Self Tap Lock Variable Angle Stardrive T8 Screw Bone - [id number] Implanted:Qty: 1 on 07/23/2021 by Delon Maya MD at [facility] Right: Patella Synthes I 02.211.026 / / Explanted Type Area Electrocardiograph Technician Device Identifier Shelf Expiration Date Model / Serial / Lot [employer] Universa 6fr 22cm Radiopaque Positioner Monofilament Tether 2 [id number] - Sn/A - [id number] Implanted:Qty: 1 on 09/28/2021 by Tere Gonzalez MD at [facility] Explanted:Qty: 1 on 12/20/2021 by Starla Powell, SUZY Stent Right: Ureter [employer] 08/08/2024 [id number] / N/A / [id number] [employer] [id number] Eryn .062in 9in 1 Trocar Smooth Wire Fixation - [id number] Explanted:Qty: 7 on 07/23/2021 by Delon Maya MD at [facility] Right: Patella [employer] [id number] / / Synthes 201.370.97 2mm 20mm Self Tap Self Retain Stardrive Cortex T6 Screw Bone - [id number] Explanted:Qty: 1 on 07/23/2021 by Delon Maya MD at [facility] Right: Patella Synthes I 201.370.9 7 / / Insurance [facility] IDPA [facility] Member Subscriber Plan / Payer ( fective 2019-Present) Name:LesviakevinZaira Relation to Subscriber:Self Name:Zaira Grubbs Payer ID:[id number] (NAIC) Type:MEDICAID RISK OTHER Address: [place] [address] Advance Directives For more information, please contact: [phone] * Full Code (Latest Code Status on File) Date Activated Date Inactivated Comments 07/22/2021 9:45 PM 07/26/2021 4:38 PM Care Teams Ice Skater Relationship Specialty Start Date End Date Simon Wagoner PA [address] [place] [address] PCP - General Family Practice 11/05/21 Halle Howell MD Consulting Physician Orthopedic Surgery 07/25/21
[2025-04-03 19:00] VITALS: BP 155/93; PULSE 89; RESP 20; O2SAT 95
[2025-04-03 19:00] LABS: Hematocrit 39.1 % (35.0-49.0); Hemoglobin 13.0 g/dL (12.0-15.0); Immature Granulocyte Percent A 0.4 % (0.0-0.0); Lymphocytes Absolute Auto 1.28 K/mm3 (1.10-4.50); Mean Corpuscular HGB Conc 33.2 g/dL (32-36); Mean Corpuscular Hemoglobin 29.5 pg (27.0-31.0); Mean Corpuscular Volume 88.7 fL (78.0-102.0); Nucleated Red Blood Cells Absolute Auto 0.00 K/mm3 (0.00-0.00); Nucleated Red Blood Cells Perc 0.0 % (0-0.0); Platelet Count Result 241 K/mm3 (150-420); Red Blood Count 4.41 M/mm3 (4.20-5.40); White Blood Count 14.5 K/mm3 (4.8-10.8)
[2025-04-03 19:11] LABS: Alanine Aminotransferase 35 U/L (6-35); Albumin Level 4.7 g/dL (3.5-5.1); Alkaline Phosphatase 78 U/L (38-126); Anion Gap 10 mmol/L (4-12); Aspartate Amino Transferase 32 U/L (14-36); Bilirubin,Total 1.0 mg/dL (0.2-1.3); Blood Urea Nitrogen 17 mg/dL (7-17); Calcium 9.8 mg/dL (8.4-10.2); Carbon Dioxide 25 mmol/L (22-30); Chloride 104 mmol/L (98-107); Estimated CRCL calculation 71 ml/min; Estimated Glomerular Filt Rate > 60; Glucose 99 mg/dL (65-110); Lipase 79 U/L (23-300); Osmolality Calculated 289 mOsm/kg (285-295); Potassium 4.0 mmol/L (3.4-5.0); Sodium 139 mmol/L (137-145); Total Protein 10.1 g/dL (6.3-8.2)
[2025-04-03 19:23] LABS: Troponin I < 0.012 ng/mL (0.000-0.034)
[2025-04-03 19:29] LABS: Add Urine Microscopic? YES; Appearance Urine Clear (Clear); Glucose Urine UA Negative (Negative); Leukocyte Esterase Ur 1+ LEU/UL (Negative); Nitrate Urine Negative (Negative); Specific Grav Ur 1.015 (1.010-1.020)
--- NOTE | 2025-04-03 19:29 | PC.NURSE ---
Pt c/o nausea and not feeling well. She states pain med didn't help much. Dr Aleman informed on pt status. New orders received.
[2025-04-03 19:31] LABS: Pregnancy On Board Control Positive
[2025-04-03] MEDS: SODIUM CHLORIDE 0.9% IV 1,000 ML 999 ML IV CONT (19:47)
[2025-04-03] MEDS: ONDANSETRON INJ 4 MG/2 ML VIAL IV PUSH (19:48)
[2025-04-03] MEDS: MORPHINE SULFATE (*CRX) 4 MG/ML INJ 6 MG IV PUSH ×2 (19:48→23:13)
--- NOTE | 2025-04-03 20:46 | PC.NURSE ---
Dr Aleman in to speak w/ pt about results and POC to transfer to urology. 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
--- NOTE | 2025-04-03 21:13 | PC.NURSE ---
Pt resting and VSS, Dr Aleman explained POC for transfer to [facility]. WIll await call back for bed placement.
[2025-04-03 21:14] VITALS: BP 143/89; PULSE 84; RESP 18; TEMP 37.4; O2SAT 98
--- NOTE | 2025-04-03 22:49 | PC.NURSE ---
Pt resting but tossing and turning, c/o feeling uncomfortable again w/ the pain. Dr Aleman informed for pain med order.
[2025-04-03 23:35] VITALS: BP 140/85; PULSE 89; RESP 18; TEMP 37.1; O2SAT 98
--- NOTE | 2025-04-06 13:43 | PC.NURSE ---
preliminary blood culture x1 reviewed. gram pos cocci isolated
--- NOTE | 2025-04-06 13:45 | PC.NURSE ---
final urine culture report reviewed. mixed urogenital pattie isolated. no change in plan of care.
--- NOTE | 2025-04-08 13:47 | PC.NURSE ---
pt transferred to [facility], call placed [phone], spoke with glen, blood culture report faxed to [phone]
--- NOTE | 2025-04-11 13:54 | PC.NURSE ---
FINAL BLOOD CULTURE REPORT: NO GROWTH IN 5 DAYS. MD KEMI NO CHANGE IN COURSE OF TREATMENT FOR THIS PT.
== END 2025-04-03 23:35 | disposition short-term general hospital (02) ==
PROVIDERS: Emergency Provider Emergency Medicine; PCP Physician Assistant
DX: N13.30 Unspecified hydronephrosis (principal); I10 Essential (primary) hypertension; F17.210 Nicotine dependence, cigarettes, uncomplicated
CPT/HCPCS: 36415; 74176; 80053; 81001; 81025; 83605; 83690; 84484; 85025; 87040; 87077; 87086; 87186; 93005; 96361; 96372; 96374; 96375; 96376; 99285; J1885; J2270; J2405; J7030